=== PATIENT | male | born 1935 | race Caucasian/White ===

== ENCOUNTER 2019-06-17 12:26 | Inpatient (IN) | payer MEDICARE, OTHER ==
[~2019-06-17 12:26] MED LIST: ISOVUE-370 76%-LOCM 1 ML ONE
--- NOTE | 2019-06-17 12:38 | CT ---
Exam: Head CT without contrast HISTORY: Last seen normal at 12:05 PM. Left-sided weakness. Left-sided facial droop. COMPARISON: none FINDINGS: Hemorrhage: No intraparenchymal hemorrhage or extra-axial hematoma. Brain parenchyma: Cortical fonseca-white matter differentiation is preserved. No mass effect or midline shift. Basilar cisterns are patent. Ventricular system: Ventricles and sulci are patent and symmetric. Calvarium: Intact. Sinuses and mastoid air cells: Adequate aeration. IMPRESSION: No acute intracranial process. Results study discussed with Dr. Garcia 06/17/2019 at 12:35 PM Code CR
[2019-06-17 12:47] LABS: #Eosinphils 0.4 thou/uL (0.0-0.7); #Lymphocytes 1.9 thou/uL (1.20-3.40); #Monocytes 0.6 thou/uL (0.11-0.59); #Neutrophils 4.6 thou/uL (1.40-6.50); %Basophils 0.4 % (0.0-1.0); %Eosinophils 4.8 % (0.0-10.0); %Lymphocytes 25.7 % (21.0-51.0); %Monocytes 8.5 % (0.0-10.0); %Neutrophils 60.7 % (42.0-75.0); Mean Corpuscular HGB CONC 33.6 g/dL (32.0-36.0); Mean Corpuscular Hemoglobin 32.2 pg (27.0-31.0); Mean Corpuscular Volume 95.6 fL (78.0-98.0); Mean Platelet Volume 7.4 fL (7.4-10.4); Platelet Count 231 thou/uL (130-400); RBC Distribution Width 12.7 % (11.5-14.5); Red Blood Cell (RBC) Count 4.36 mill/uL (4.70-6.10); White Blood Cell (WBC) Count 7.6 thou/uL (4.8-10.8)
[2019-06-17 12:55] LABS: PTT 27.3 SEC (22.9-36.1); Prothrombin Time 12.9 SEC (12.0-14.7)
--- NOTE | 2019-06-17 13:03 | CT ---
CT ANGIOGRAM OF THE HEAD CT ANGIOGRAM OF THE NECK: HISTORY: Level 1 stroke. Acute onset left sided weakness and left facial droop. COMPARISON: None. TECHNIQUE: CT angiogram of the head and neck are performed in the axial plane. Three-dimensional reformatted mary ges are submitted for interpretation . FINDINGS: POSTCONTRAST HEAD CT: Cortical fonseca-white matter differentiation is preserved. POSTCONTRAST SOFT TISSUE NECK CT: Bilateral ocular lenses are appropriately located. Both globes are intact. Retrobulbar fat is preserv ed. Symmetric attenuation of the optic nerves and ocular rectus muscles. Aerodigestive tract: No mucosal abnormality. Limited evaluation the oral cavity due to dental amalgam artifact. Midline fatty raphae of the tongue preserved. Epiglottis has a normal caliber. Preepiglottic fat is preserved. Symmetric attenuation of the paraspinal muscles. Symmetric attenuation of sternocleidomastoid muscles . Symmetric attenuation of the salivary glands. Thyroid gland appears to be atrophic and hypodense. No evidence of lymphadenopathy by size criteria. Cervical spine vertebral body height is maintained. No fracture. Straightening of normal cervical bryan dosis may be due to cervical fusion from C4 through C5. Upper mediastinum is unremarkable. Presumed chronic changes in the visualized lung parenchyma. CT ANGIOGRAM: The visualized central pulmonary arteries are unremarkable. Visualized aortic arch demonstrates atherosclerosis. Right carotid: The right carotid artery origin, innominate artery, common carotid artery have appropr iate enhancement and luminal diameter. There is calcified plaque in the right carotid bifurcation and proximal internal carotid artery. There is high-grade stenosis in the proximal right internal car otid artery with a string sign involving the proximal to mid right internal carotid artery. The distal internal carotid artery does not demonstrate a enhancement suggesting occlusion/thrombosis. Left carotid: The left carotid artery origin has appropriate enhancement and luminal diameter. There is calcified plaque in a stent in the left carotid bifurcation and proximal left internal card artery. There appears to be patency through the stent. The mid to distal left internal carotid artery is patent. Visualized subclavian arteries are unremarkable. Bilateral cervical vertebral arteries are patent thr oughout their course in the neck. The right vertebral artery is dominant. CT ANGIOGRAM OF THE HEAD: Absence of enhancement in the distal cervical and intracranial right internal carotid artery. There i s appropriate enhancement and luminal diameter involving the intracranial left internal carotid artery. Anterior circulation: There is enhancement of the right A1 and right M1 segments, via collateral supp ly. The A1 segments and A2 segments are essentially symmetric. There is moderate short segment narrowing of the proximal right M1 segment. The mid and distal right M1 segments have appropriate enh ancement and luminal diameter. Proximal MCA branches appear to be symmetric. No evidence of significant vascular occlusion or stenosis. Posterior circulation: There is atherosclerosis involving both intracranial vertebral arteries. The b asilar artery appears to be solely supplied right vertebral artery. Basilar artery has appropriate enhancement and luminal diameter. Bilateral P1 segments have appropriate enhancement and luminal diam eter. The left vertebral artery appears to terminate in what is likely a PICA distribution. IMPRESSION: 1. High-grade stenosis with a string sign and occlusion of the right internal carotid artery. The int racranial right internal carotid artery does have enhancement due to collateral flow. 2. Stent in the left carotid bifurcation and proximal left internal carotid artery. There is atherosc lerotic disease. Stent appears to be patent. 3. Short segment moderate narrowing of the right M1 segment. 4. Basilar artery supplied solely by the right vertebral artery. No significant stenosis of either P1 segments. Results of study discussed with Dr. Garcia 06/17/2019 at 12:58 PM. Code CR Transcribed Date/Time: 06/17/2019 1:26 PM
[2019-06-17 13:08] LABS: ALT (SGPT) 17 U/L (8-55); AST (SGOT) 19 U/L (5-34); Albumin 3.9 g/dL (3.4-4.8); Alkaline Phosphatase 59 U/L (40-110); Anion Gap 16 mmol/L (10-20); BUN (Urea Nitrogen) 22 mg/dL (8.4-25.7); Bilirubin, Total 0.4 mg/dL (0.2-1.2); Calc. Creatinine Clearance 0 mL/min (70-130); Calcium 9.3 mg/dL (7.8-10.44); Carbon Dioxide 20 mmol/L (23-31); Chloride 105 mmol/L (98-107); Estimated GFR-MDRD 54; Globulin 2.7 g/dL (2.4-3.5); Glucose 199 mg/dL (83-110); Potassium 4.1 mmol/L (3.5-5.1); Protein, Total 6.6 g/dL (5.8-8.1); Sodium 137 mmol/L (136-145)
[2019-06-17 13:20] LABS: Troponin I 0.025 ng/mL (< 0.028)
[2019-06-17] MEDS ORDERED: Aspirin Chewable 81 MG TAB ONE (14:02)
[2019-06-17] MEDS ORDERED: Senokot S 8.6-50 MG TAB PO PRN (15:24)
[2019-06-17] MEDS ORDERED: Bisacodyl 10 MG SUPP PR PRN (15:24)
[2019-06-17] MEDS ORDERED: Guaifenesin DM 100-10/5 ML UDCUP PO PRN (15:24)
[2019-06-17] MEDS ORDERED: Dextrose 5% in Water 1,000 ML IV PRN (15:24)
[2019-06-17] MEDS ORDERED: Dextrose 50% Abboject 50 ML SYRINGE SLOW IVP PRN (15:24)
[2019-06-17] MEDS ORDERED: Acetaminophen 325 MG TAB PO PRN (15:24)
--- NOTE | 2019-06-17 16:19 | HP ---
REASON FOR ADMISSION: Acute CVA with left hemiparesis. HISTORY OF PRESENTING ILLNESS: The patient gives history of attending [facility] here. He is originally from [facility]. He was walking out in the sun for sometime as well post this ceremony. He got too weak and in fact slumped over to the left side. They took him to the first aid tent at the ceremony area. He was found drooling and had left-sided weakness. EMS was summoned. This happened around 12:00 p.m. The patient was brought to emergency room here by 12:20 p.m. His initial NIH was 9. This was rapidly improving and then come down to 6. The family declined tPA. Currently, he is oriented and communicating well. He appears to be a little dry. No complaints of chest pain or palpitation. He is able to move all 4 extremities. He is a right-handed person. He has some weakness on the left upper and lower extremity at present. No complaints of cough or expectoration. No complaints of fever. No prior history of stroke, although he has had carotid stenosis with complete occlusion on the right with collaterals and has stent placed in the left carotid system by his homeworker, Dr. Jose Pike in [place]. He has had a stress test done in January of 2019 which showed EF of 53% with wall motion abnormalities, but the patient eventually declined catheterization. PAST MEDICAL AND SURGICAL HISTORY: History of right carotid occlusion with good collaterals, history of left carotid territory stent done by Dr. Jose Pike, homeworker in [place] 3 years back. Last stress test was 3 months back which showed wall motion abnormalities but ejection fraction of 53% with the patient declining cath. He has chronic left bundle branch block. I have confirmed this by talking to Dr. Jose Pike's office at [place]. The number to reach their office is [phone]. History of prior ID with angioplasties done and no stenting done at the age of 49 years, diabetes mellitus type 2 which is uncontrolled, hypertension, cholecystectomy, hernia repair, hypothyroidism, and dementia. CURRENT MEDICATIONS: The patient is on; 1. Aspirin 81 mg p.o. daily. 2. Synthroid 137 mcg p.o. daily. 3. Hydrochlorothiazide 25 mg p.o. daily. 4. Imdur 15 mg p.o. daily. 5. Tresiba 12 units daily. 6. NovoLog sliding scale. 7. Lovastatin 20 mg daily. 8. Ramipril 10 mg daily. 9. Metformin extended release 1000 mg twice daily. 10. Ferrous sulfate one tab daily. 11. Centrum Silver 1 tablet daily. 12. Vitamin D3 daily. 13. Donepezil 10 mg daily. ALLERGIES: NO KNOWN DRUG ALLERGIES. PERSONAL HISTORY: Does not abuse alcohol or drugs. Lives with his . They have been for nearly 61 years now. FAMILY HISTORY: Mother in her 40s from lung cancer. She was a smoker. Father at the age of 82 from natural causes. CODE STATUS: Full. Power of deputy prosecuting attorney is his . REVIEW OF SYSTEMS: CONSTITUTIONAL: Negative for weight loss or gain, ability to conduct usual activities. SKIN: Negative for rash, itching. EYES: Negative for double vision, pain. ENT/MOUTH: Negative for nose bleeding, neck stiffness, pain, tenderness. CARDIOVASCULAR: Negative for palpitations, dyspnea on exertion, orthopnea. RESPIRATORY: Negative for shortness of breath, wheezing, cough, hemoptysis, fever or night sweats. GASTROINTESTINAL: Negative for poor appetite, abdominal pain, heartburn, nausea , vomiting, constipation, or diarrhea. GENITOURINARY: Negative for urgency, frequency, dysuria, nocturia. MUSCULOSKELETAL: Negative for pain, swelling. NEUROLOGIC/PSYCHIATRIC: Negative for anxiety, depression. ALLERGY/IMMUNOLOGIC: Negative for skin rash, bleeding tendency. PHYSICAL EXAMINATION: GENERAL: The patient is an 83-year-old male, who is currently not in any acute distress. VITAL SIGNS: Blood pressure 132/74, pulse 64 per minute, respiratory rate 18 per minute, saturating 95% on room air, temperature is 97.6 degrees Fahrenheit. NECK: Supple. No elevated JVD. HEENT: Eyes; extraocular muscles intact. Pupils reacting to light. Oral cavity, mucous membranes are dry. No exudates or congestion. CARDIOVASCULAR: S1 and S2 heard, regular rhythm. RESPIRATORY: Air entry 1+ bilateral. No rales or rhonchi. ABDOMEN: Soft. Bowel sounds heard. No tenderness, rigidity, or guarding. EXTREMITIES: No peripheral edema or calf tenderness. VASCULAR SYSTEM: Peripheral pulses 1+ bilateral. No ischemic ulcerations or gangrene. CENTRAL NERVOUS SYSTEM: Cranial nerves, the patient has mild facial droop on the left side. All other cranial nerves are grossly intact. Strength is 4/5 in left upper and lower extremity. Tone is normal. Reflexes are 2+ bilateral. Babinski is downgoing on the right, upgoing on the left. PSYCHIATRIC SYSTEM: The patient's mood is euthymic. No hallucinations or delusions. LABORATORY DATA: CT brain without contrast shows no acute intracranial process. CT angio of head and neck done showed high-grade stenosis with a string sign and occlusion of the right internal carotid artery. There is intracranial right internal carotid artery enhancement due to collateral flow. There is a stent in the left carotid bifurcation and proximal left internal carotid artery. The stent appears to be patent, short segment narrowing, moderate narrowing of the right M1 segment. There is basilar artery supplied solely by the right vertebral artery. No significant stenosis of either P1 segments. EKG done shows normal sinus rhythm at 63 beats per minute. There is chronic LBBB seen. This was confirmed with his homeworker's office. QRS duration is 152 milliseconds, corrected QT 489 milliseconds. Serum bicarb 20, BUN 22, creatinine 1.2, serum glucose 199. Liver enzymes within normal limits. Troponin I 0.02. Albumin 3.9. PT, INR, and PTT within normal limits. Electrolytes stable. White count of 7, H and H 14 and 41 , platelet count is 231, MCV is 95 with 60% neutrophils. CLINICAL IMPRESSION AND PLAN: The patient will be admitted to stroke unit for acute cerebrovascular accident with left hemiparesis. The patient has known history of carotid disease and has chronic occlusion of the right carotid and has a stent placed to the left carotid bifurcation as well. He was on aspirin and was on Plavix initially for the stent, but has discontinued it after a year of taking it. A stent for carotids was placed 3 years ago, is currently patent on the CT angio. Clinically, the patient has left hemiparesis. We will obtain a complete stroke workup. Echo with 2D Doppler. MRI brain without contrast will be obtained. We will obtain Neurology consultation with Dr. Vu who is certified low vision therapist. We will continue his home dose of Synthroid, Imdur extended release, ramipril as before. He will be on Lantus 10 units subcu twice daily as our pharmacy does not carry his Tresiba. We will also place him on Lipitor 40 mg at bedtime in view of significant atherosclerotic disease. PT, OT, and Speech evaluations will be requested per stroke protocol. I have given complete updates to the patient's and son including the patient at bedside. Job ID: [id number] MTDD
[2019-06-17 17:46] VITALS: BMI 23.8
[2019-06-17] MEDS: Sodium Chloride 0.9% 1,000 ML IV SCH ×2 (18:38→21:02)
[2019-06-17] MEDS: HumaLOG 300 UNITS/3 ML VIAL SC PRN (19:24)
[2019-06-17] MEDS ORDERED: Famotidine 20 MG TAB PO SCH (21:00)
[2019-06-17] MEDS: Donepezil HCl 10 MG TAB PO SCH (21:03)
[2019-06-17] MEDS: Atorvastatin Calcium 40 MG TAB PO SCH (21:03)
[2019-06-17] MEDS: Insulin Glargine 10 UNITS in Pre-Filled Syringe 1 EACH SC SCH (21:03)
[2019-06-18 04:18] LABS: #Eosinphils 0.3 thou/uL (0.0-0.7); #Lymphocytes 2.5 thou/uL (1.20-3.40); #Monocytes 0.9 thou/uL (0.11-0.59); #Neutrophils 5.5 thou/uL (1.40-6.50); %Basophils 0.1 % (0.0-1.0); %Eosinophils 3.1 % (0.0-10.0); %Lymphocytes 27.2 % (21.0-51.0); %Monocytes 9.9 % (0.0-10.0); %Neutrophils 59.7 % (42.0-75.0); Hemoglobin 13.4 g/dL (14.0-18.0); Mean Corpuscular HGB CONC 33.6 g/dL (32.0-36.0); Mean Corpuscular Hemoglobin 31.3 pg (27.0-31.0); Mean Corpuscular Volume 93.1 fL (78.0-98.0); Mean Platelet Volume 7.3 fL (7.4-10.4); Platelet Count 216 thou/uL (130-400); RBC Distribution Width 12.7 % (11.5-14.5); White Blood Cell (WBC) Count 9.2 thou/uL (4.8-10.8)
[2019-06-18 05:03] LABS: Anion Gap 13 mmol/L (10-20); BUN (Urea Nitrogen) 24 mg/dL (8.4-25.7); Calc. Creatinine Clearance 49 mL/min (70-130); Carbon Dioxide 23 mmol/L (23-31); Cardiac Risk 2.6 (Less than 4.5); Chloride 105 mmol/L (98-107); Cholesterol 125 mg/dl (< 200 Desired); Estimated GFR-MDRD 66; Glucose 126 mg/dL (83-110); HDL Cholesterol 48 mg/dL (>60 Neg Risk); LDL Cholesterol, Calculated 54 mg/dL; Potassium 3.5 mmol/L (3.5-5.1); Sodium 137 mmol/L (136-145); Triglycerides 115 mg/dL (Less than 150)
[2019-06-18] MEDS: Sodium Chloride 0.9% 1,000 ML IV SCH ×2 (05:57→12:16)
[2019-06-18] MEDS: Levothyroxine Sodium 25 MCG TAB PO SCH (05:58)
[2019-06-18] MEDS: Levothyroxine Sodium 112 MCG TAB PO SCH (05:58)
[2019-06-18] MEDS ORDERED: Levothyroxine Sodium 125 MCG TAB PO SCH (06:00)
[2019-06-18] MEDS ORDERED: Isosorbide Mononitrate (ER) 30 MG TAB PO SCH (09:00)
[2019-06-18] MEDS: Isosorbide Mononitrate (ER) 30 MG TAB PO SCH (10:41)
[2019-06-18] MEDS: Aspirin 81 mg Enteric Coated Tablet PO SCH (10:41)
[2019-06-18] MEDS: Ramipril 5 MG CAP PO SCH (10:41)
[2019-06-18] MEDS: Clopidogrel Bisulfate 75 MG TAB PO SCH (10:42)
[2019-06-18] MEDS: Enoxaparin Sodium 40 MG/0.4 ML SYRINGE SC SCH (10:42)
[2019-06-18] MEDS: Famotidine 20 MG TAB PO SCH (10:42)
[2019-06-18] MEDS: Insulin Glargine 10 UNITS in Pre-Filled Syringe 1 EACH SC SCH ×2 (10:43→21:31)
[2019-06-18] MEDS: HumaLOG 300 UNITS/3 ML VIAL SC PRN (12:44)
--- NOTE | 2019-06-18 14:21 | PDOC.HOSPP ---
- Subjective Encounter Date: 06/18/19 Subjective: Pt seen c/o left sided weakness and unsteadiness - Objective Vital Signs & Weight: Vital Signs (12 hours) Temp Pulse Pulse Pulse Resp BP BP 06/18/19 12:00 97.1 F L 71 20 06/18/19 10:41 177/85 H 06/18/19 10:35 06/18/19 10:15 65 67 164/84 H 06/18/19 07:25 98 F 64 20 06/18/19 04:00 97.8 F 67 20 BP BP Pulse Ox 06/18/19 12:00 167/77 H 95 06/18/19 10:41 06/18/19 10:35 98 06/18/19 10:15 190/89 H 06/18/19 07:25 177/85 H 98 06/18/19 04:00 184/86 H 96 Weight Weight 147 lb 13.44 oz Result Diagrams: 06/18/19 04:02 06/18/19 04:02 Additional Labs: Accuchecks 06/18/19 06/18/19 06/18/19 12:37 10:42 06:02 POC Glucose 313 H 254 H 113 H 06/17/19 06/17/19 06/17/19 19:49 18:34 15:29 POC Glucose 218 H 181 H 108 06/17/19 14:39 POC Glucose 108 Hospitalist ROS - Review of Systems Constitutional: denies: fever Eyes: denies: pain ENT: denies: ear pain Respiratory: denies: cough Gastrointestinal: denies: nausea Musculoskeletal: denies: neck pain Neurological: reports: weakness - Medication Medications: Active Medications Generic Name Dose Route Start Last Admin Trade Name Freq PRN Reason Stop Dose Admin Aspirin 81 mg 06/18/19 09:00 06/18/19 10:41 Ecotrin PO 81 mg DAILY BREA Administration Atorvastatin Calcium 40 mg 06/17/19 21:00 06/17/19 21:03 Lipitor PO 40 mg HS BREA Administration Clopidogrel Bisulfate 75 mg 06/18/19 09:00 06/18/19 10:42 Plavix PO 75 mg DAILY BREA Administration Donepezil HCl 10 mg 06/17/19 21:00 06/17/19 21:03 Aricept PO 10 mg HS BREA Administration Enoxaparin Sodium 40 mg 06/18/19 09:00 06/18/19 10:42 Lovenox SC 40 mg 09 BREA Administration Famotidine 20 mg 06/18/19 09:00 06/18/19 10:42 Pepcid PO 20 mg DAILY BREA Administration Insulin Glargine 10 units/ 0.1 mls @ 0 mls/hr 06/17/19 21:00 06/18/19 10:43 Miscellaneous Medication SC 0.1 mls BID BREA Administration Sodium Chloride 1,000 mls @ 70 mls/hr 06/17/19 15:24 06/18/19 12:16 Normal Saline 0.9% IV 06/18/19 19:58 1,000 mls .[id number] BREA Administration Insulin Human Lispro 0 units 06/17/19 15:24 06/18/19 12:44 Humalog SC 8 units .MODERATE SLIDING SC PRN Administration Moderate Correctional Scale Isosorbide Mononitrate 15 mg 06/18/19 09:00 06/18/19 10:41 Imdur Er PO 15 mg DAILY BREA Administration Levothyroxine Sodium 112 mcg 06/18/19 06:00 06/18/19 05:58 Synthroid PO 112 mcg 0600 BREA Administration Levothyroxine Sodium 25 mcg 06/18/19 06:00 06/18/19 05:58 Synthroid PO 25 mcg 0600 BREA Administration Ramipril 10 mg 06/18/19 09:00 06/18/19 10:41 Altace PO 10 mg DAILY BREA Administration Sodium Chloride 10 ml 06/17/19 15:24 06/17/19 21:02 Flush - Normal Saline IVF 10 ml PRN PRN Administration Saline Flush - Exam Eye: PERRL ENT: normocephalic atraumatic, dry oral mucosa Neck: supple Respiratory: CTAB Gastrointestinal: soft Extremities: no cyanosis Neurological: facial droop Neurological - other findings: left sided 4/5 power Musculoskeletal: normal tone Psychiatric: normal affect Hosp A/P - Plan Possible Acute CVA with left hemiparesis CT brain neg Pending MRI brain , echo , continue plavix, statin , neuro checks , neurology evaluation appreciated , f/ u PT/OT/ST HTN Continue monitoring BP Hypothyroid Continue synthroid DM continue monitoring blood sugar h/o Carotid artery stenosis s/p Left carotid stenting , CTA positive for right ICA narrowing and patent left ICA stent DVT/GI Prophylaxis
--- NOTE | 2019-06-18 15:42 | MRI ---
MRI Brain WO Con: 06/18/2019 3:24 PM CLINICAL HISTORY: Stroke. TECHNIQUE: Multiplanar, multisequence images were obtained of the brain. COMPARISON: CT brain dated June 17, 2019 FINDINGS: Motion artifact slightly limits image detail. Extra axial spaces: Normal in size and morphology for the patient's age. Hemorrhage: None. Ventricular system: Normal in size and morphology for the patient's age. Basal cisterns: Normal. Cerebral parenchyma: There is a mild chronic small vessel white matter ischemic change. There is mild generalized cerebral and cerebellar atrophy. There are punctate regions of restricted diffusion with associated T2 hyperintensity involving the right subinsular cortex and punctate regions of the a nterolateral right frontal cortex.. Midline shift: None. Cerebellum: Normal. Brainstem: Normal. OTHER: Calvarium: Normal. Vascular system: Normal. Visualized Paranasal sinuses: Clear. Visualized Orbits: Normal. Visualized upper cervical spine: Normal. Sella and skull base: Normal. IMPRESSION: Acute, likely embolic, lacunar infarcts involving the right subinsular cortex as well as the cortex a nd subcortical white matter of the anterolateral right frontal lobe. Mild chronic small vessel white matter ischemic change with mild generalized cerebral and cerebellar atrophy.
--- NOTE | 2019-06-18 16:37 | CON ---
DATE OF CONSULTATION: 06/18/2019 This was a Telemedicine consult with RN, Caleb Harrison. CHIEF COMPLAINT: Acute stroke. HISTORY OF PRESENT ILLNESS: The patient's and the patient gave medical history. The patient was at a ring ceremony, when he collapsed to the ground, it was hot. They had to walk up several blocks to get there. He suddenly felt that his left side became weak and his face started drooping. His niece rushed him to the hospital. He felt dizzy at that time. No history of headache. No numbness or tingling or vision problems. He has poorly controlled diabetes, but his blood pressure is normally under control. He never had a stroke. PAST SURGICAL HISTORY: He has history of left carotid angioplasty, gallbladder surgery, and hernia repair. FAMILY HISTORY: Father at 82 due to aging. Mother at 47. She had lung cancer. The patient is an only child. He has 3 kids, who are healthy. SOCIAL HISTORY: He is nonsmoker. He is tired. Lives with his . No alcohol. REVIEW OF SYSTEMS: PULMONARY: Negative for cough or shortness of breath. GASTROINTESTINAL: Negative for any nausea, vomiting, or diarrhea. OPHTHALMOLOGIC: Negative for any vision changes. NEUROLOGIC: Positive for left-sided weakness and dizziness. DERMATOLOGIC: Negative for any skin rash. GENITOURINARY: Negative for any bladder dysfunction. PHYSICAL EXAMINATION: VITAL SIGNS: Blood pressure is 177/85, pulse is 71, temperature 97.1, and O2 saturations 98%. GENERAL APPEARANCE: Well-built, well-nourished man, who seems comfortable. CHEST: Clear vesicular breathing. CARDIOVASCULAR: Normal. ABDOMEN: Soft and nontender. No organomegaly noted. NEUROLOGIC: Higher intellectual functions. Normal orientation to time, place, and person. Appropriate conversation. Cranial nerves; normal extraocular movements. Pupils are 2 mm, reactive bilaterally and he had facial asymmetry with facial droop on the left side. Tongue midline. No atrophy noted. Normal elevation of palate. Motor; bulk normal. Tone normal. Strength 5/5 throughout in iliopsoas, hamstrings, quadriceps, ankle dorsiflexion, plantar flexion, deltoid, biceps, triceps, wrist extension and flexion, and on the right side is 5/5. On the left side, he had weakness in the left upper extremity at 4/5 and left lower extremity 3/5 in the flexors and 4/5 in the extensors. Gait not testable. Cerebellar; normal [id number], [id number]. Sensory normal bilaterally in upper and lower extremities. Deep tendon reflexes absent throughout. LABORATORY WORKUP: White count 9.2, hemoglobin 13.4, hematocrit 40, and platelet count 216. Coags normal. Chemistry; sodium 137, potassium 3.5, chloride 105, bicarb 23, BUN 24, creatinine 1.07, and glucose 126. Lipid profile within normal limits and his CT angiogram was reported and it showed high-grade stenosis with a string sign and occlusion of the right ICA. Intracranial right ICA does have an enhancement due to collateral flow. Stent in the left carotid bifurcation and proximal ICA is atherosclerotic disease. Stent is patent. Short segment moderate narrowing of the right M1 segment basilar artery supplied solely by the right vertebral artery. His brain MRI was completed by the time of this dictation and his brain MRI shows acute likely embolic lacunar infarct in the right subinsular cortex as well as cortex and subcortical white matter of anterolateral right frontal lobe. Moderate chronic small vessel disease with mild generalized cerebral and cerebellar atrophy. Echocardiogram is pending. IMPRESSION: The patient is an 83-year-old man with diabetes, which is not well controlled. He has been having problems with his left side since yesterday and currently has right-sided infarct, both in cortical and subcortical area. He does have right internal carotid artery stenosis. This could obtain embolic from the carotid rather than cardioembolic event, but we are currently pending echocardiogram. TREATMENT RECOMMENDATIONS: Please keep the patient on high-dose aspirin 325 mg along with statin. Please consult Vascular Surgery for opinion about the right carotid artery. He will probably need both aspirin and Plavix for stroke prophylaxis from now on. I will see the patient again tomorrow. Job ID: [id number]
[2019-06-18] MEDS: Atorvastatin Calcium 40 MG TAB PO SCH (21:27)
[2019-06-18] MEDS: Donepezil HCl 10 MG TAB PO SCH (21:27)
[2019-06-19] MEDS ORDERED: hydrALAZINE 20 MG/ML VIAL SLOW IVP SCH (04:30)
[2019-06-19] MEDS: Levothyroxine Sodium 112 MCG TAB PO SCH (05:26)
[2019-06-19] MEDS: Levothyroxine Sodium 25 MCG TAB PO SCH (05:26)
[2019-06-19] MEDS: Famotidine 20 MG TAB PO SCH (08:51)
[2019-06-19] MEDS: Isosorbide Mononitrate (ER) 30 MG TAB PO SCH (08:51)
[2019-06-19] MEDS: Ramipril 5 MG CAP PO SCH (08:51)
[2019-06-19] MEDS: Aspirin 81 mg Enteric Coated Tablet PO SCH (08:51)
[2019-06-19] MEDS: Enoxaparin Sodium 40 MG/0.4 ML SYRINGE SC SCH (08:51)
[2019-06-19] MEDS: Clopidogrel Bisulfate 75 MG TAB PO SCH (08:52)
[2019-06-19] MEDS: Insulin Glargine 10 UNITS in Pre-Filled Syringe 1 EACH SC SCH ×2 (08:52→21:07)
--- NOTE | 2019-06-19 10:34 | CON ---
DATE OF CONSULTATION: HISTORY OF PRESENT ILLNESS: Mr. Allen is an 83-year-old, who is from [place]. He has a history of left carotid stent placement a couple of years ago. He is followed in [place] and was seen 6 months ago with carotid ultrasound. According to his , they were told that the carotid stent was okay. His right carotid had not progressed enough to need any therapy at that time. He presented through the emergency department with stroke symptoms. He was here in town, visiting his grandson. He had left-sided weakness and was found to be drooling and very weak. He was not given tPA at presentation. Since that time, he has recovered some of the strength in his leg and has actually been walking with assistance. His left arm and hand remain weak. He apparently has been eating without difficulty, but on my arrival was eating grits and coughing. He also had couple of sips of coffee that caused him to cough. We decided to not allow him to eat until he had further swallowing evaluation. He has had a CT angio of his neck performed, which shows an occluded right carotid system. He has a left carotid stent that is patent with some pre-stent restenoses. PAST MEDICAL HISTORY: 1. Carotid disease. 2. Diabetes mellitus. 3. Hypertension. 4. Hypothyroidism. PAST SURGICAL HISTORY: 1. Cholecystectomy. 2. Hernia repair. 3. Left carotid stenting. CURRENT MEDICATIONS: 1. Aspirin 81 mg daily - the patient had previously been on Plavix, but stopped it about a year ago. 2. Synthroid 137 mcg daily. 3. Hydrochlorothiazide 25 mg daily. 4. Imdur 15 mg daily. 5. Tresiba 12 units daily. 6. NovoLog sliding scale. 7. Lovastatin 20 mg daily. 8. Ramipril 10 mg daily. 9. Metformin ER 1000 mg b.i.d. 10. Donepezil 10 mg daily. ALLERGIES: NONE. SOCIAL HISTORY: He lives with his in [place]. REVIEW OF SYSTEMS: Not performed due to the patient's current status. PHYSICAL EXAMINATION: GENERAL: This is an 83-year-old gentleman, who is able to converse, but is very weak. VITAL SIGNS: Height is 5 feet and 6 inches. Weight is 147 pounds. BSA is 1.77. Temperature is 97.3, pulse is 69 and regular, and blood pressure is 180/90. HEENT: Sclerae are nonicteric. Pupils are equal and round bilaterally. NECK: Supple without carotid bruit on the right. I can auscultate a very soft bruit on the left. CHEST: Clear with some rhonchi. HEART: Rhythm is regular. NEUROLOGIC: He has good function of his left lower extremity. His left upper extremity, he can raise it off the bed. He can squeeze his hand into a fist, but cannot open. He can weakly raise his thumb. His forearm musculature is also very weak. RADIOLOGY DATA: MRI shows multifocal right cerebral infarcts. CT angiogram of the neck shows an occluded right internal carotid artery with patent carotid stent on the left. ASSESSMENT AND PLAN: Status post right hemispheric cerebrovascular accident with residual deficits. He needs a swallowing evaluation again to ensure that he is not aspirating. There is no current therapy for an occluded internal carotid artery. I have recommended aspirin, Plavix, and poststroke rehab. Job ID: [id number]
--- NOTE | 2019-06-19 12:46 | CT ---
CT Brain WO Con: 06/19/2019 11:59 AM CLINICAL HISTORY: History of CVA with increased lethargy. IMAGING TECHNIQUE: Multiple CT images were obtained of the brain without IV contrast. COMPARISON: MR the brain dated June 10, [address] the brain dated June 17, 2019 FINDINGS: Brain: There are evolutionary changes involving the cortical and subcortical white matter infarcts i nvolving the right frontal lobe and right subinsular region. Chronic small vessel white matter ischemic changes similar appearing. Generalized cerebral atrophy is similar appearing. Ventricles: Normal. No hydrocephalus.. Skull: Intact.. Visualized Paranasal sinuses: Clear.. Mastoid air cells:Clear. Extracranial soft tissues:Normal. IMPRESSION: Evolutionary changes of the known anterolateral right frontal lobe cortical infarct and lacunar infar ct in the right subinsular region.
--- NOTE | 2019-06-19 14:04 | PDOC.HOSPP ---
- Subjective Encounter Date: 06/19/19 Subjective: Pt seen awake follows command as per symptoms are more worse than yesterday , , Pt not in distress awake follows command - Objective Vital Signs & Weight: Vital Signs (12 hours) Temp Pulse Pulse Pulse Resp BP BP 06/19/19 11:58 97.8 F 95 16 06/19/19 10:00 87 86 133/76 06/19/19 08:51 180/90 H 06/19/19 07:56 97.3 F L 69 20 06/19/19 05:27 66 06/19/19 04:34 72 180/90 H 06/19/19 04:21 72 06/19/19 04:00 97.7 F 72 16 06/19/19 03:22 BP BP BP Pulse Ox 06/19/19 11:58 163/77 H 93 L 06/19/19 10:00 141/70 H 06/19/19 08:51 06/19/19 07:56 132/63 96 06/19/19 05:27 162/75 H 06/19/19 04:34 06/19/19 04:21 180/90 H 06/19/19 04:00 184/84 H 96 06/19/19 03:22 96 Weight Weight 147 lb 13.44 oz Result Diagrams: 06/18/19 04:02 06/18/19 04:02 Additional Labs: Accuchecks 06/19/19 06/19/19 06/19/19 10:56 06:23 01:50 POC Glucose 187 H 133 H 96 06/18/19 06/18/19 20:24 16:56 POC Glucose 203 H 154 H Hospitalist ROS - Review of Systems Constitutional: denies: fever Eyes: denies: pain ENT: denies: ear pain Respiratory: denies: cough Cardiovascular: denies: chest pain Gastrointestinal: denies: nausea Musculoskeletal: denies: neck pain Skin: denies: rash Neurological: reports: weakness Other: power left side 4/5 with left facial droop - Medication Medications: Active Medications Generic Name Dose Route Start Last Admin Trade Name Freq PRN Reason Stop Dose Admin Aspirin 81 mg 06/18/19 09:00 06/19/19 08:51 Ecotrin PO 81 mg DAILY BREA Administration Atorvastatin Calcium 40 mg 06/17/19 21:00 06/18/19 21:27 Lipitor PO 40 mg HS BREA Administration Clopidogrel Bisulfate 75 mg 06/18/19 09:00 06/19/19 08:52 Plavix PO 75 mg DAILY BREA Administration Donepezil HCl 10 mg 06/17/19 21:00 06/18/19 21:27 Aricept PO 10 mg HS BREA Administration Enoxaparin Sodium 40 mg 06/18/19 09:00 06/19/19 08:51 Lovenox SC 40 mg 0900 BREA Administration Famotidine 20 mg 06/18/19 09:00 06/19/19 08:51 Pepcid PO 20 mg DAILY BREA Administration Insulin Glargine 10 units/ 0.1 mls @ 0 mls/hr 06/17/19 21:00 06/19/19 08:52 Miscellaneous Medication SC 0.1 mls BID BREA Administration Insulin Human Lispro 0 units 06/17/19 15:24 06/18/19 12:44 Humalog SC 8 units .MODERATE SLIDING SC PRN Administration Moderate Correctional Scale Isosorbide Mononitrate 15 mg 06/18/19 09:00 06/19/19 08:51 Imdur Er PO 15 mg DAILY BREA Administration Levothyroxine Sodium 112 mcg 06/18/19 06:00 06/19/19 05:26 Synthroid PO 112 mcg 0600 BREA Administration Levothyroxine Sodium 25 mcg 06/18/19 06:00 06/19/19 05:26 Synthroid PO 25 mcg 0600 BREA Administration Ramipril 10 mg 06/18/19 09:00 06/19/19 08:51 Altace PO 10 mg DAILY BREA Administration Sodium Chloride 10 ml 06/17/19 15:24 06/17/19 21:02 Flush - Normal Saline IVF 10 ml PRN PRN Administration Saline Flush - Exam General - other findings: Awake but looks week and tired Eye: anicteric sclera ENT: normocephalic atraumatic Neck: supple Heart: no murmur Respiratory: CTAB Gastrointestinal: soft Extremities: no cyanosis Skin: normal turgor Neurological - other findings: left facial droop and left side power 4/5 Musculoskeletal: normal tone Hosp A/P - Plan Possible Acute CVA with left hemiparesis CT brain neg , MRI brain positive for right lacunar infarcsts right sub insular and sub cortical white matter anterolateral frontal lobe , echo with normal EF and calcified mass possible chorda tendinae calcification , Discussed with Dr Horace Tai will get cardiology evaluation if MINNA needed , continue aspirin plavix, statin , neuro checks , neurology evaluation appreciated , Continue PT/OT/ST , Pt has more worsening symptoms today most likely due to evolutionary changes , possible needs rehab placement HTN Continue monitoring BP , Continue home ramipril and added amlodipine will avoid aggressive drop in BP Hypothyroid Continue synthroid DM continue monitoring blood sugar h/o Carotid artery stenosis s/p Left carotid stenting , Right ICA stenosis Vascular surgery evaluation appreciated recomended no surgical intervention at present DVT/GI Prophylaxis Plan Discusssed with pt , son , and Dr Zaire Vu
--- NOTE | 2019-06-19 16:10 | PRG ---
DATE OF SERVICE: 06/19/2019 CHIEF COMPLAINT: Acute stroke. INTERVAL HISTORY: The patient's is very concerned, because the patient has progressed and the stroke is now more established. He has become more drowsy today and is much worse and at this time, he has already been seen by vascular surgeon as well. I requested a CT of the head after I visited with him this afternoon and CT shows evolutionary changes of the known anterolateral right frontal lobe cortical infarct and lacunar infarct in the right subinsular region and echocardiogram has been completed and reviewed already yesterday. Labs count, no new labs today, glucose is 187. PHYSICAL EXAMINATION: VITAL SIGNS: Temperature 97.3, blood pressure 180/90, pulse 69, respiratory rate 20, O2 saturations 96, and blood pressure 132/63. GENERAL APPEARANCE: The patient is asleep and not awake today. He is responsive and stimulated and fearful. NEUROLOGIC: Cranial nerves, pupils 2 mm bilaterally and he has more significant left facial droop. Motor examination, his strength on the right is normal, strength on the left is 4/5. IMPRESSION: The patient is an 83-year-old man with right internal carotid artery stenosis and he had an embolic event with 2 strokes, 1 in the right frontal and 1 subinsular lacunar infarct and seems to have more established infarct with expected evolution today clinically as well. At this time, the patient's is quite distressed with his change in neurological status. Son was also in the room. I advised the patient's and son that he has now established the stroke and there would be more changes as expected with the evolution of ischemic area and there is not much we can do other than wait for him to recover slowly. RECOMMENDATIONS: Please follow vascular surgery consult recommendations for adding Plavix to aspirin. The patient will need rehab or SNF based on his recovery. If there are any further questions, please call Dr. Franco from tomorrow. Job ID: [id number]
[2019-06-19] MEDS ORDERED: Prochlorperazine Maleate 5 MG TAB PO PRN (16:14)
[2019-06-19] MEDS: Atorvastatin Calcium 40 MG TAB PO SCH (21:07)
[2019-06-19] MEDS: Donepezil HCl 10 MG TAB PO SCH (21:07)
[2019-06-20] MEDS: Levothyroxine Sodium 112 MCG TAB PO SCH (05:01)
[2019-06-20] MEDS: Levothyroxine Sodium 25 MCG TAB PO SCH (05:01)
[2019-06-20 06:08] LABS: Anion Gap 13 mmol/L (10-20); BUN (Urea Nitrogen) 14 mg/dL (8.4-25.7); Calc. Creatinine Clearance 56 mL/min (70-130); Carbon Dioxide 22 mmol/L (23-31); Chloride 105 mmol/L (98-107); Estimated GFR-MDRD 77; Glucose 92 mg/dL (83-110); Potassium 3.5 mmol/L (3.5-5.1); Sodium 136 mmol/L (136-145)
[2019-06-20] MEDS: Enoxaparin Sodium 40 MG/0.4 ML SYRINGE SC SCH (08:42)
[2019-06-20] MEDS: Aspirin 81 mg Enteric Coated Tablet PO SCH (08:42)
[2019-06-20] MEDS: Ramipril 5 MG CAP PO SCH (08:42)
[2019-06-20] MEDS: Famotidine 20 MG TAB PO SCH (08:43)
[2019-06-20] MEDS: Clopidogrel Bisulfate 75 MG TAB PO SCH (08:43)
[2019-06-20] MEDS: Isosorbide Mononitrate (ER) 30 MG TAB PO SCH (08:43)
--- NOTE | 2019-06-20 10:35 | RAD ---
EXAM: XR Ba Swallow W/Speech Therap PROVIDED CLINICAL HISTORY: Dysphagia following cerebral infarction Feeding difficulties COMPARISON: None FINDINGS: Multiple consistencies of oral barium were administered by the speech therapist. There is evidence fo r penetration with multiple consistencies. Kaushik aspiration without cough reflex is demonstrated involving smoothie consistency. Please see speech therapy consultation for full details. IMPRESSION: As above.
[2019-06-20] MEDS: Insulin Glargine 10 UNITS in Pre-Filled Syringe 1 EACH SC SCH ×2 (11:18→21:10)
[2019-06-20] MEDS: D5 0.9% NS w/ 20 mEq KCl 1,000 ML IV SCH (14:53)
--- NOTE | 2019-06-20 19:03 | CON ---
DATE OF CONSULTATION: 06/20/2019 REQUESTING PHYSICIAN: Dr. Pino. REASON FOR CONSULTATION: PEG tube placement. HISTORY OF PRESENT ILLNESS: Emmanuel Allen is an 83-year-old man from the [facility], who has been in town for [employer] ceremony. Unfortunately, he was admitted to the hospital 3 days ago with acute stroke symptoms. He has been found to have 2 areas of infarction in the right frontal area and right lacunar infarct as well. He unfortunately has had waning level of consciousness, aphasia, and also oropharyngeal dysphagia. Modified barium swallow test today demonstrated daniel aspiration with smooth consistencies and penetration with all consistencies. His family has discussed it and desires to proceed with PEG tube placement. The patient has had a prior cholecystectomy and abdominal hernia repair, but no other abdominal surgeries. No significant prior gastrointestinal history. He is being treated with aspirin and Plavix. REVIEW OF SYSTEMS: Unable to obtain due to the patient's mental status. PAST MEDICAL HISTORY: History of right carotid occlusion, history of left carotid endarterectomy with stent, chronic left bundle branch block, prior myocardial infarction with angioplasty at age 49, diabetes type 2, hypertension, cholecystectomy, hernia repair, hypothyroidism, and dementia. MEDICATIONS: Outpatient medications: 1. Aspirin 81 mg daily. 2. Synthroid. 3. Hydrochlorothiazide. 4. Imdur. 5. Tresiba insulin sliding scale. 6. Lovastatin. 7. Ramipril. 8. Metformin. 9. Ferrous sulfate. 10. Multivitamin. 11. Vitamin D3. 12. Donepezil. Inpatient medications: 1. Plavix 75 mg daily. 2. Pepcid 20 mg p.o. daily. FAMILY HISTORY: Noncontributory. SOCIAL HISTORY: The patient is from the [facility]. No alcohol or drug abuse. He has been for nearly 61 years. FAMILY HISTORY: Mother in her 40s from lung cancer. She was a smoker. PHYSICAL EXAMINATION: VITAL SIGNS: Temperature 97.9, pulse 86, blood pressure 120/60, and 95% oxygen saturation on room air. GENERAL: An 83-year-old man, lying in bed, unresponsive, appears to be in no distress. SKIN: No jaundice. No rashes were palpable. EYES: No scleral icterus. ENT: Mucous membranes moist. LYMPH: No submandibular or supraclavicular lymphadenopathy. THYROID: Nontender to palpation. HEART: Regular rate and rhythm. LUNGS: Clear to auscultation bilaterally. ABDOMEN: Nondistended. Bowel sounds present. Soft, nontender to palpation. No surgical scars apparent to the left upper quadrant. He does have a midline scar from prior cholecystectomy. EXTREMITIES: No peripheral edema. VESSELS: Radial pulses 2+ bilaterally. NEUROLOGIC: The patient does not follow commands. LABORATORY STUDIES: WBC 9.2, hemoglobin 13.4, platelets 216. INR 1.0. Sodium 136, potassium 3.5, BUN 14, creatinine 0.93, glucose 121, and magnesium 1.8. ASSESSMENT AND PLAN: Oropharyngeal dysphagia following cerebrovascular accident. I had a long discussion with the patient's and daughter today. I do think the patient is a good candidate for percutaneous endoscopic gastrostomy tube placement for nutritional delivery. We discussed the potential risks and benefits of percutaneous endoscopic gastrostomy tube placement including bleeding, infection, failure of procedure, perforated viscus surgery as well as anesthesia risk. They desire for us to proceed. We will plan for PEG placement tomorrow. Hold Lovenox tomorrow in anticipation for procedure. Note, the patient is on aspirin and Plavix, but I would not hold these for PEG placement in this context. Thank you for the consultation. Please call anytime with questions or concerns. Job ID: [id number]
[2019-06-20] MEDS: Atorvastatin Calcium 40 MG TAB PO SCH (21:24)
[2019-06-20] MEDS: Donepezil HCl 10 MG TAB PO SCH (21:24)
--- NOTE | 2019-06-20 21:26 | PDOC.HOSPP ---
- Subjective Encounter Date: 06/20/19 Encounter Time: 11:30 Subjective: Patient seen and examined for Acute CVA. Somnolent. No new focal deficits. No overnight events - Objective Vital Signs & Weight: Vital Signs (12 hours) Temp Pulse Resp BP Pulse Ox 06/20/19 20:04 97.8 F 76 20 144/83 H 96 06/20/19 15:40 97.4 F L 84 18 132/65 94 L 06/20/19 11:58 97.9 F 86 18 120/60 95 Weight Weight 147 lb 13.44 oz I&O: 06/19/19 06/20/19 06/21/19 06:59 06:59 06:59 Intake Total 307 Balance 307 Result Diagrams: 06/18/19 04:02 06/20/19 05:31 Additional Labs: Accuchecks 06/20/19 06/20/19 06/20/19 16:52 11:19 05:51 POC Glucose 139 H 121 H 90 06/19/19 23:44 POC Glucose 144 H EKG Reviewed by me: Yes (Tele SR/Vta) Hospitalist ROS - Review of Systems ROS unobtainable: due to mental status - Medication Medications: Active Medications Generic Name Dose Route Start Last Admin Trade Name Freq PRN Reason Stop Dose Admin Aspirin 81 mg 06/18/19 09:00 06/20/19 08:42 Ecotrin PO 81 mg DAILY BREA Administration Atorvastatin Calcium 40 mg 06/17/19 21:00 06/19/19 21:07 Lipitor PO 40 mg HS BREA Administration Clopidogrel Bisulfate 75 mg 06/18/19 09:00 06/20/19 08:43 Plavix PO 75 mg DAILY BREA Administration Donepezil HCl 10 mg 06/17/19 21:00 06/19/19 21:07 Aricept PO 10 mg HS BREA Administration Enoxaparin Sodium 40 mg 06/18/19 09:00 06/20/19 08:42 Lovenox SC 40 mg 0900 BREA Administration Famotidine 20 mg 06/18/19 09:00 06/20/19 08:43 Pepcid PO 20 mg DAILY BREA Administration Insulin Glargine 10 units/ 0.1 mls @ 0 mls/hr 06/17/19 21:00 06/20/19 21:10 Miscellaneous Medication SC 0.1 mls BID BREA Administration Potassium Chloride/Dextrose/Sod Cl 1,000 mls @ 75 mls/hr 06/20/19 13:00 06/20 14:53 D5 0.9% Ns W/ 20 Meq Kcl IV 1,000 mls .[id number] BREA Administration Insulin Human Lispro 0 units 06/17/19 15:24 06/18/19 12:44 Humalog SC 8 units .MODERATE SLIDING SC PRN Administration Moderate Correctional Scale Isosorbide Mononitrate 15 mg 06/18/19 09:00 06/20/19 08:43 Imdur Er PO 15 mg DAILY BREA Administration Levothyroxine Sodium 112 mcg 06/18/19 06:00 06/20/19 05:01 Synthroid PO 112 mcg 0600 BREA Administration Levothyroxine Sodium 25 mcg 06/18/19 06:00 06/20/19 05:01 Synthroid PO 25 mcg 0600 BREA Administration Prochlorperazine Maleate 5 mg 06/19/19 16:14 06/19/19 21:07 Compazine PO 5 mg 12 PRN Administration Hiccups Ramipril 10 mg 06/18/19 09:00 06/20/19 08:42 Altace PO 10 mg DAILY BREA Administration Sodium Chloride 10 ml 06/17/19 15:24 06/17/19 21:02 Flush - Normal Saline IVF 10 ml PRN PRN Administration Saline Flush - Exam General Appearance: NAD Neck: supple, no JVD Heart: RRR, no gallops Respiratory: CTAB, no rales Gastrointestinal: soft, non-tender, normal bowel sounds Extremities: no edema Neurological: no new deficit Neurological - other findings: Exam limited due to AMS Psychiatric: somnolent Hosp A/P - Plan DVT proph w/lovenox Acute CVA Swallow dysfunction Rt ICA stenosis NSVT CAD HTN HLD DM2 Hypothyrodism PLAN: Cont ASA/Plavix Consult GI for PEG tube eval AM labs Await Cardio input
--- NOTE | 2019-06-20 22:27 | CON ---
DATE OF CONSULTATION: 06/20/2019 INDICATION FOR CONSULTATION: An 83-year-old gentleman who suffered an apparently large CVA, who was found to have some right carotid artery stenosis, which was subtotal apparently with a string sign. He has undergone angioplasty and stent placement to the left carotid artery in the past. He has had no significant CVAs in the past. He does have a history of coronary artery disease, suffered a myocardial infarction many years ago and had angioplasty, but no stent was placed. He has not had any bypass surgery. He usually is very active and walks a mile a day and stays active. He was at a ring ceremony for his grandson when he started having some left-sided drooling and felt bad. He then started having some problems with swallowing. He remained weak. His left side became very weak. He was unable to move his arm or his hand. Apparently, he was brought to the emergency room, was found to have suffered a CVA. He did have some slight improvement with any regress or digress again. He does have what appears to be significant lethargy at this time and very little movement on the left side. He was found to have the carotid artery stenosis. He also has a history of hypertension and diabetes. At this time, the echocardiogram did show some calcification and what appeared to be the chordae tendineae and this is of some concern. However, given his current present condition at this time, he is not a reasonable candidate to undergo a transesophageal echocardiogram as there will be no changes in the therapy on this patient at this time. He had no previous or no recent cardiac complaints. We are more than happy to continue to follow the patient with you. Should he have improvement, then we certainly can evaluate the calcification in the left ventricle, which appears to be due to the chordae and may be associated with a previous myocardial infarction, that is unclear. PAST MEDICAL HISTORY: Significant for the coronary artery disease, angioplasty, carotid disease and stent placement to the left carotid artery, diabetes, hypertension, hypothyroidism. He has had a hernia repair. He has had a cholecystectomy. MEDICATIONS: Prior to admission included; 1. Aspirin. 2. He had been on Plavix, was stopped a year ago. 3. He is on Synthroid. 4. Hydrochlorothiazide. 5. Imdur. 6. Tresiba. 7. Insulin on a sliding scale. 8. Lovastatin. 9. Ramipril. 10. Metformin. 11. Donepezil. ALLERGIES: NONE. SOCIAL HISTORY: He remains very active. He has no alcohol or tobacco abuse. He still goes to football games in [facility]. He lives with his , he resides with her in [place]. He has children, who are alive and well. REVIEW OF SYSTEMS: Unable to obtain. The family is at the bedside and no significant complaints on the review of systems except what is noted in the history of present illness. PHYSICAL EXAMINATION: GENERAL: Reveals an elderly gentleman, he is very lethargic at this time. He is arousable, but then goes back to sleep. He is afebrile. VITAL SIGNS: Blood pressure is 132/65, O2 saturation 94%, heart rate is 84, respiratory rate is 18. HEENT: Shows the head to be normocephalic and atraumatic. He does have bilateral carotid pulses, which are noted (his stenosis in the internal carotid artery). CHEST: Clear to auscultation. CARDIOVASCULAR: Reveals a regular rate and rhythm at this time. I do not hear any significant murmurs, heaves, thrills, bruits, or rubs. He has a very soft systolic murmur at the apex. ABDOMEN: Soft and nontender. Positive bowel sounds are present. EXTREMITIES: Show no clubbing or cyanosis. Pedal pulses are difficult to palpate, but popliteal pulses are present. NEUROLOGICAL: Neurologically, he seems to be somewhat flaccid on his left side. He is unable to move extremities at this time. The family did say he was able to move his leg a little bit earlier today, but he is not moving it now. He is not responding to my request to squeeze his hand or anything such as actively using his left side. SKIN: Warm and dry. LABORATORY DATA: As noted in his data, the MRI showed multiple right cerebral infarcts, which could be showering from the right occluded carotid artery with evidence of thrombus is unclear. He has been placed on some anticoagulation at this time. History of coronary artery disease, which appears to be stable. Some type of calcified, most likely a chordae tendineae in the left ventricle. This can be evaluated in the future, but do not think that this would be an ideal time to perform a transesophageal cardiogram on this patient. We will be more than happy to continue to follow the patient with you. Should he improve, then further evaluation could be undertaken. ASSESSMENT AND PLAN: This patient does have a left bundle branch block and I am uncertain whether this is new or not. He has also had some nonsustained ventricular tachycardia of 5 or 6 beats. I would continue to follow this also very carefully. He did have also some what appeared to be some SVT or atrial tachycardia about 13 beats. We will continue to monitor this patient for this but at this time, we will continue his medications. He may need to have a low dose of beta blockers. I noticed that he is not on beta blockers at this time. He is on ION inhibitor, as well as Plavix and also atorvastatin, but I do not see a beta ro and we will add a low dose beta ro to this gentleman. We will need to be very careful since his heart rate is sometimes a little bit slower and at this time is in the 70s and 80s. We will continue to monitor him while he is on telemetry. Job ID: [id number]
[2019-06-21] MEDS: D5 0.9% NS w/ 20 mEq KCl 1,000 ML IV SCH (03:40)
[2019-06-21] MEDS ORDERED: hydrALAZINE 20 MG/ML VIAL SLOW IVP SCH (04:00)
[2019-06-21 05:26] LABS: #Basophils 0.1 thou/uL (0.0-0.2); #Eosinphils 0.2 thou/uL (0.0-0.7); #Neutrophils 6.1 thou/uL (1.40-6.50); %Basophils 0.5 % (0.0-1.0); %Eosinophils 2.3 % (0.0-10.0); %Lymphocytes 21.6 % (21.0-51.0); %Monocytes 10.9 % (0.0-10.0); %Neutrophils 64.7 % (42.0-75.0); Hemoglobin 15.6 g/dL (14.0-18.0); Mean Corpuscular HGB CONC 32.5 g/dL (32.0-36.0); Mean Corpuscular Hemoglobin 31.1 pg (27.0-31.0); Mean Corpuscular Volume 95.6 fL (78.0-98.0); Mean Platelet Volume 7.7 fL (7.4-10.4); Platelet Count 271 thou/uL (130-400); RBC Distribution Width 12.7 % (11.5-14.5); Red Blood Cell (RBC) Count 5.03 mill/uL (4.70-6.10); White Blood Cell (WBC) Count 9.4 thou/uL (4.8-10.8)
[2019-06-21 05:40] LABS: ALT (SGPT) 16 U/L (8-55); AST (SGOT) 22 U/L (5-34); Albumin 3.9 g/dL (3.4-4.8); Alkaline Phosphatase 70 U/L (40-110); Anion Gap 13 mmol/L (10-20); BUN (Urea Nitrogen) 17 mg/dL (8.4-25.7); Bilirubin, Total 0.7 mg/dL (0.2-1.2); Calc. Creatinine Clearance 54 mL/min (70-130); Calcium 9.4 mg/dL (7.8-10.44); Carbon Dioxide 24 mmol/L (23-31); Chloride 106 mmol/L (98-107); Estimated GFR-MDRD 74; Globulin 3.1 g/dL (2.4-3.5); Glucose 60 mg/dL (83-110); Magnesium 1.8 mg/dL (1.6-2.6); Potassium 3.4 mmol/L (3.5-5.1); Sodium 140 mmol/L (136-145)
[2019-06-21] MEDS: Levothyroxine Sodium 112 MCG TAB PO SCH (06:10)
[2019-06-21] MEDS: Levothyroxine Sodium 25 MCG TAB PO SCH (06:10)
[2019-06-21] MEDS: Carvedilol 3.125 MG TAB PO SCH ×2 (07:57→17:08)
[2019-06-21] MEDS: Aspirin 81 mg Enteric Coated Tablet PO SCH (07:57)
[2019-06-21] MEDS: Insulin Glargine 10 UNITS in Pre-Filled Syringe 1 EACH SC SCH (07:58)
[2019-06-21] MEDS: Clopidogrel Bisulfate 75 MG TAB PO SCH (07:58)
[2019-06-21] MEDS: Famotidine 20 MG TAB PO SCH (07:58)
[2019-06-21] MEDS: Isosorbide Mononitrate (ER) 30 MG TAB PO SCH (07:59)
[2019-06-21] MEDS: Ramipril 5 MG CAP PO SCH (07:59)
--- NOTE | 2019-06-21 08:10 | CON ---
DATE OF CONSULTATION: PRIMARY CARDIOLOGISTS: 1. Dr. oJse Pike in [place]. 2. Stephanie Antunez MD at [facility]. REASON FOR CARDIOLOGY CONSULTATION: Acute CVA, evaluation for possible MINNA. HISTORY OF PRESENT ILLNESS: Mr. Allen is an 83-year-old male with a significant history of coronary artery disease with angioplasty without stent placement back in , hypertension, insulin-dependent diabetes, hypothyroidism. The patient was alleged to be doing well till June 17 when he was attending [employer]ancy ceremony here in [place]. He collapsed during the ceremony and he was brought to the rescue tent at the ceremony. After he received water and food, he was doing okay for 30 minutes. However, around 12:05, the family noticed the patient started having facial drooping with slurred speech and left-sided weakness. The patient was transferred to the hospital on Thursday, his NIH was . However, last Thursday, the patient's NIH was increased to 11 with worsening of left-sided weakness. At this moment, the patient is asleep and without any acute distress. So, the patient information was obtained from the patient's family member and from the medical record. Prior to this event, the patient's family has not noticed the patient's complaint of chest pain, discomfort in his chest, fluttering or palpitation in his chest, any other cardiac complaints. He walks more than 1 mile almost every day without any cardiac complaints. He has an intermitted dizziness, lightheadedness secondary to diabetes. He had a stress test done in January 2019 with EF of 53% with wall motion abnormality. However, according to the patient's family, the patient was not recommended to have any cardiac cath or any further cardiac workup. PAST MEDICAL HISTORY: Coronary artery disease with angioplasty without any stent placement in , hypertension, insulin-dependent diabetes, hypothyroidism, and memory loss. Actually, the patient is on Namenda, which the patient requests his primary care doctor to prescribe the medicine for further memory loss prevention and chronic left bundle-branch block. PAST SURGICAL HISTORY: Cholecystectomy, hernia repair. FAMILY HISTORY: The patient's mother at the age of 47 from lung cancer. The patient's grandmother on maternal side had a history of diabetes. The patient's son has medical history of hypertension. The patient's daughter has kidney problem with multiple surgeries when she was young. SOCIAL HISTORY: He is . He has 3 children, one daughter has congenital kidney problem when she was young. The patient confirmed that he is a nonsmoker, no ETOH, no illicit drug abuse. He exercises every day. He drinks 1 cup of coffee and 2 sodas every day. ALLERGIES: HE HAS NO KNOWN DRUG ALLERGIES. MEDICATIONS: 1. Namenda 5 mg once a day. 2. Aricept 10 mg once a day at night. 3. Lovastatin 20 mg every p.m. 4. Imdur 30 mg half a tablet once a day. 5. Hydrochlorothiazide 25 mg once a day. 6. Metformin 1000 mg twice a day. 7. Ramipril 10 mg once a day. 8. Multivitamin once a day. 9. Levothyroxine once a day. 10. Ferrous sulfate 325 mg 1 tablet once a day. 11. Vitamin D3 2000 units once a day. 12. Aspirin 81 mg once a day. REVIEW OF SYSTEMS: A 12-point review of systems is noncontributory from the patient, however, family member reports no complaints prior to this event. PHYSICAL EXAMINATION: VITAL SIGNS: Blood pressure 167/75, temperature 97.9, pulse is 77, sinus rhythm, O2 saturation 96% on room air, and respiratory rate 16. GENERAL: The patient is alert, the patient is sleeping at this moment, but not in acute distress. Seems like the patient has sleep apnea. He sometimes stopped breathing for 30 seconds today during the assessment. HEENT: Head, normocephalic, atraumatic. Eyes, extraocular muscle movement intact. ENT, mouth, facial drooping on the left side. At this moment, the patient is very drowsy. He does not follow any commands at this moment. RESPIRATORY: Clear to auscultation bilaterally. No wheezing, rales, or rhonchi noted. It seems like he has sleep apnea. CARDIOVASCULAR: Regular rate and rhythm. Normal S1, S2. There is no S3 or S4. No significant murmur, hives, or thrill noted. 2+ pulses in bilateral upper and lower extremities. No edema in the lower extremities. Carotid pulses are present, bruit bilaterally. ABDOMEN: Soft, nontender. No masses are palpated. Bowel sounds are present. MUSCULOSKELETAL: Unable to assess at this moment because the patient is very drowsy and the patient's family member refuses to wake him up at this moment. SKIN: Warm and dry. No significant rash, arrhythmia, or lesions noted. NEUROLOGIC: Again, unable to assess at this moment. LABORATORY DATA: Echocardiogram was done on June 18 with EF 60% to 65%, grade 1 diastolic dysfunction, mild left LVH, mildly dilated left atrium, mild tricuspid regurgitation, mild to moderate mitral valve regurgitation, and calcified mass in LV seems to be calcified chordae tendineae and recommended MINNA for further evaluation. CT scan showed severe right carotid stenosis and stent in the left carotid arteries. Vascular surgery consult was ordered. ASSESSMENT AND PLAN: 1. Possible acute cerebrovascular accident with left hemiparesis. Echocardiogram shows normal EF, but with calcified mass possible in LV. MINNA was recommended. 2. Hypertension. The patient's blood pressure is mildly elevated. We would like to adjust the patient's medication this moment. 3. Coronary artery disease with angioplasty without stent placement in . He has been started on aspirin and he is not on beta ro even in his home medication. I would like to discuss with the family member why the patient is not on a beta ro. If he is okay, we would like to start even the low dose of beta ro medication for this patient. The patient's pulse is stable at this moment. 4. Hyperlipidemia. He is on atorvastatin 40 mg at this moment. 5. Insulin-dependent diabetes which is managed by primary care doctor. He is on before meals and at bedtime blood glucose check with sliding scale insulin order. 6. Hypothyroidism. He is on levothyroxine. Thank you very much for allowing the cardiology service to participate in the care of this patient. We will follow along the patient's care team and make further recommendations as appropriate. Job ID: [id number]
[2019-06-21] MEDS ORDERED: Promethazine HCl 25 MG/ML VIAL SLOW IVP PRN (13:26)
[2019-06-21] MEDS ORDERED: Ondansetron HCl/PF 4 MG/2 ML Vial IVP PRN (13:26)
[2019-06-21] MEDS ORDERED: Promethazine HCl 25 MG/ML VIAL IM PRN (13:26)
[2019-06-21] MEDS ORDERED: PROPOFOL 200 MG/20 ML VIAL ONE (14:18)
[2019-06-21] MEDS ORDERED: Lidocaine 1% PF 5 ML VIAL ONE (14:18)
--- NOTE | 2019-06-21 15:08 | PDOC.CPN ---
- Subjective Date: 06/21/19 Time: 15:13 Interval history: The pt seen and examined. No overnight events. No cardiac complaints. S/p PEG tube placement. O2 sat while he stops breathing has been > 90s. - Objective Allergies/Adverse Reactions: Allergies Allergy/AdvReac Type Severity Reaction Status Date / Time No Known Allergies Allergy Unverified 06/17/19 16:54 Visit Medications: Current Medications Acetaminophen (Tylenol) 650 mg PO Q4H PRN PRN Reason: Headache/Fever/Mild Pain (1-3) Aspirin (Ecotrin) 81 mg PO DAILY [facility] Last Admin: 06/21/19 07:57 Dose: Not Given Atorvastatin Calcium (Lipitor) 40 mg PO HS [facility] Last Admin: 06/20/19 21:24 Dose: Not Given Bisacodyl (Dulcolax) 10 mg [place] DAILYPRN PRN PRN Reason: Constipation Carvedilol (Coreg) 1.5625 mg PO BID-[facility] Last Admin: 06/21/19 07:57 Dose: Not Given Clopidogrel Bisulfate (Plavix) 75 mg PO DAILY [facility] Last Admin: 06/21/19 07:58 Dose: Not Given Dextrose/Water (Dextrose 50%) 25 gm SLOW IVP PRN PRN PRN Reason: Hypoglycemia Donepezil HCl (Aricept) 10 mg PO HS [facility] Last Admin: 06/20/19 21:24 Dose: Not Given Enoxaparin Sodium (Lovenox) 40 mg SC 0900 [facility] Last Admin: 06/20/19 08:42 Dose: 40 mg Famotidine (Pepcid) 20 mg PO DAILY [facility] Last Admin: 06/21/19 07:58 Dose: Not Given Glucagon (Glucagon) 1 mg IM PRN PRN PRN Reason: Hypoglycemia Guaifenesin/Dextromethorphan (Robitussin Dm) 15 ml PO Q4H PRN PRN Reason: Cough Dextrose/Water (D5w) 1,000 mls @ 0 mls/hr IV .Q0M PRN PRN Reason: Hypoglycemia Potassium Chloride/Dextrose/Sod Cl (D5 0.9% Ns W/ 20 Meq Kcl) 1,000 mls @ 75 mls/hr IV .[id number] [facility] Last Admin: 06/21/19 03:40 Dose: 1,000 mls Insulin Human Lispro (Humalog) 0 units SC .MODERATE SLIDING SC PRN PRN Reason: Moderate Correctional Scale Last Admin: 06/18/19 12:44 Dose: 8 units Insulin Human Lispro (Humalog) 0 units SC .BEDTIME SLIDING SC PRN PRN Reason: Bedtime Correctional Scale Isosorbide Mononitrate (Imdur Er) 15 mg PO DAILY [facility] Last Admin: 06/21/19 07:59 Dose: Not Given Levothyroxine Sodium (Synthroid) 112 mcg PO 0600 [facility] Last Admin: 06/21/19 06:10 Dose: Not Given Levothyroxine Sodium (Synthroid) 25 mcg PO 0600 [facility] Last Admin: 06/21/19 06:10 Dose: Not Given Ondansetron HCl (Pacu-Zofran) 4 mg IVP ONE PRN PRN Reason: Nausea/Vomiting Stop: 06/21/19 16:26 Prochlorperazine Maleate (Compazine) 5 mg PO 12 PRN PRN Reason: Hiccups Last Admin: 06/19/19 21:07 Dose: 5 mg Promethazine HCl (Pacu-Phenergan) 6.25 mg SLOW IVP ONE PRN PRN Reason: Nausea/Vomiting Stop: 06/21/19 16:26 Promethazine HCl (Pacu-Phenergan) 6.25 mg IM ONE PRN PRN Reason: Nausea/Vomiting Stop: 06/21/19 16:26 Ramipril (Altace) 10 mg PO DAILY [facility] Last Admin: 06/21/19 07:59 Dose: Not Given Senna/Docusate Sodium (Senokot S) 2 tab PO BIDPRN PRN PRN Reason: Constipation Sodium Chloride (Flush - Normal Saline) 10 ml IVF PRN PRN PRN Reason: Saline Flush Last Admin: 06/17/19 21:02 Dose: 10 ml Vital Signs & Weight: Vital Signs Temp Pulse Resp BP BP Pulse Ox 06/21/19 11:28 98.4 F 76 18 161/79 H 98 06/21/19 08:00 97 06/21/19 07:59 142/71 H 06/21/19 07:48 98.4 F 79 18 135/66 97 06/21/19 04:33 139/67 06/21/19 04:16 80 20 155/77 H 96 06/21/19 04:00 65 06/21/19 03:43 217/93 H Admit Weight 147 lb 13.44 oz Weight 147 lb 13.44 oz - Physical Exam General: other (sleeping) Neck: supple neck Cardiac: regular rate and rhythm, S1/S2 Lungs: clear to auscultation, decreased breath sounds Skin: clear - Labs Result Diagrams: 06/21/19 04:46 06/21/19 04:46 Troponin/CKMB Troponin I 0.025 ng/mL (< 0.028) 06/17/19 12:36 - Telemetry Sinus rhythms and dysrhythmias: sinus rhythm - Assessment/Plan Assessment/Plan: 1. LBBB and s/p NSVTs/Atrial tachycardia - stable with Coreg 3.125mg 1/2 tab BID ; cont. to monitor on tele 2. 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 Rt ICA stenosis and hx of Lt CEA - 4. CAD with AIR BRAKE ADJUSTER without stent in 1980s - 5. HTN - stable with current meds 6. HLD - pn Statin 7. 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 8. Hypothyroidim - 9. Mass in Left Ventricle - possible MINNA when the pt is more stable 10. JL - per the family, he was diagnosed JL; however, refused to wear cpcp at home MAR reviewed Pt. seen and eval. by me. Still very lethargic. I reviewed the echo and this appears to be a calcified papillary muscle. Very unusual finding. This could be the result of the SD that he had many years ago. I spoke to his and she states that he has had frequent echoes in the past and this was not mentioned. She will ask her plans examiner in [place] to review the old echoe from the last 1-2 years and see if this calcified mass was present. It would appear that the CVA was caused by the occlusion of the right ICA. From a cardiac standpoint he is not a good candidate at this time for a MINNA or any cardiac intervention. Otherwise the cardiac status is stable. abel
[2019-06-21] MEDS ORDERED: D5 0.9% NS w/ 20 mEq KCl 1,000 ML IV SCH ×2 (15:14→18:46)
--- NOTE | 2019-06-21 18:38 | OP ---
DATE OF PROCEDURE: 06/21/2019 PREOPERATIVE DIAGNOSIS: CVA. POSTOPERATIVE DIAGNOSIS: Normal EGD with PEG tube placed. ANESTHESIA: TIVA, Ancef 2 g IV given. DESCRIPTION OF PROCEDURE: The patient was informed of the risks, benefits, and possible complications of endoscopy including perforation, reaction to medication, and aspiration, informed consent was obtained. The patient was brought to the endoscopy suite, where he was sedated in gradual fashion. Once he was comfortable, a bite block was placed inside his orifice. The endoscope was advanced to the esophagus, stomach, and second and third portion of the duodenum and slowly removed. There was good visualization of the mucosa. There were no mass lesions or AV malformations identified. There was good site for PEG tube placement by transillumination and finger indentation and identified on the anterior abdominal wall. After this, the abdomen was prepped and draped in sterile fashion and PEG tube was placed by Ponsky pull technique. Second-look confirmed good position. Retroflexed views were normal. The scope was removed. The patient tolerated the procedure well. There were no complications. RECOMMENDATIONS: Tube feeds can begin as per hospitalist in 1 hour. Can use the PEG now for medications. Job ID: [id number]
[2019-06-21] MEDS: Donepezil HCl 10 MG TAB PO SCH (20:13)
[2019-06-21] MEDS: Ramipril 5 MG CAP PER TUBE SCH (20:13)
[2019-06-21] MEDS: Isosorbide Mononitrate 20 MG TAB PER TUBE SCH (20:13)
[2019-06-21] MEDS: Atorvastatin Calcium 40 MG TAB PO SCH (20:13)
--- NOTE | 2019-06-21 22:26 | PDOC.HOSPP ---
- Subjective Encounter Date: 06/21/19 Encounter Time: 19:00 Subjective: Patient seen and examined for Acute CVA. Mentation improving. No new complaints. No overnight events - Objective Vital Signs & Weight: Vital Signs (12 hours) Temp Pulse Resp BP BP Pulse Ox 06/21/19 20:13 142/71 H 06/21/19 20:08 99.2 F 77 20 175/88 H 97 06/21/19 16:00 98.4 F 63 16 163/76 H 93 L 06/21/19 11:28 98.4 F 76 18 161/79 H 98 Weight Admit Weight 147 lb 13.44 oz Weight 147 lb 13.44 oz I&O: 06/20/19 06/21/19 06/22/19 06:59 06:59 06:59 Intake Total 307 Balance 307 Result Diagrams: 06/21/19 04:46 06/21/19 04:46 Additional Labs: Accuchecks 06/21/19 06/21/19 06/21/19 20:14 16:31 10:42 POC Glucose 142 H 115 H 116 H 06/21/19 06/21/19 06/21/19 08:17 05:58 03:30 POC Glucose 86 71 82 EKG Reviewed by me: Yes (Tele SR) Hospitalist ROS - Review of Systems ROS unobtainable: due to mental status - Medication Medications: Active Medications Generic Name Dose Route Start Last Admin Trade Name Freq PRN Reason Stop Dose Admin Aspirin 81 mg 06/18/19 09:00 06/21/19 07:57 Ecotrin PO Not Given DAILY BREA Atorvastatin Calcium 40 mg 06/17/19 21:00 06/21/19 20:13 Lipitor PO 40 mg HS BREA Administration Carvedilol 1.5625 mg 06/21/19 08:00 06/21/19 17:08 Coreg PO 1.5625 mg BID-WM BREA Administration Clopidogrel Bisulfate 75 mg 06/18/19 09:00 06/21/19 07:58 Plavix PO Not Given DAILY [facility] Donepezil HCl 10 mg 06/17/19 21:00 06/21/19 20:13 Aricept PO 10 mg HS BREA Administration Enoxaparin Sodium 40 mg 06/18/19 09:00 06/20/19 08:42 Lovenox SC 40 mg 0900 BREA Administration Famotidine 20 mg 06/18/19 09:00 06/21/19 07:58 Pepcid PO Not Given DAILY [facility] Insulin Human Lispro 0 units 06/17/19 15:24 06/18/19 12:44 Humalog SC 8 units .MODERATE SLIDING SC PRN Administration Moderate Correctional Scale Isosorbide Mononitrate 15 mg 06/21/19 21:00 06/21/19 20:13 Ismo PER TUBE 15 mg BID BREA Administration Levothyroxine Sodium 112 mcg 06/18/19 06:00 06/21/19 06:10 Synthroid PO Not Given 0600 BREA Levothyroxine Sodium 25 mcg 06/18/19 06:00 06/21/19 06:10 Synthroid PO Not Given 0600 BREA Prochlorperazine Maleate 5 mg 06/19/19 16:14 06/19/19 21:07 Compazine PO 5 mg 12 PRN Administration Hiccups Ramipril 5 mg 06/21/19 21:00 06/21/19 20:13 Altace PER TUBE 5 mg BID BREA Administration Sodium Chloride 10 ml 06/17/19 15:24 06/17/19 21:02 Flush - Normal Saline IVF 10 ml PRN PRN Administration Saline Flush - Exam General Appearance: NAD Neck: supple, no JVD Heart: RRR, no rubs Respiratory: CTAB, no rales Gastrointestinal: soft, non-tender, non-distended, normal bowel sounds Extremities: no edema Hosp A/P - Plan Acute CVA Swallow dysfunction s/p PEG Rt ICA stenosis NSVT CAD HTN HLD DM2 Hypothyrodism Hypokalemia PLAN: Cont ASA/Plavix Restart Nitrates and ACEI Tolerating low dose BB Tube feed AM labs MINNA when more stable
[2019-06-22] MEDS: HumaLOG 300 UNITS/3 ML VIAL SC PRN ×4 (01:05→17:37)
[2019-06-22] MEDS: Levothyroxine Sodium 112 MCG TAB PO SCH (06:20)
[2019-06-22] MEDS: Levothyroxine Sodium 25 MCG TAB PO SCH (06:20)
[2019-06-22] MEDS: Enoxaparin Sodium 40 MG/0.4 ML SYRINGE SC SCH (08:38)
[2019-06-22] MEDS: Isosorbide Mononitrate 20 MG TAB PER TUBE SCH ×2 (08:39→21:30)
[2019-06-22] MEDS: Ramipril 5 MG CAP PER TUBE SCH ×2 (08:39→21:30)
[2019-06-22] MEDS: Famotidine 20 MG TAB PO SCH (08:39)
[2019-06-22] MEDS: Aspirin 81 mg Enteric Coated Tablet PO SCH (08:40)
[2019-06-22] MEDS: Clopidogrel Bisulfate 75 MG TAB PO SCH (08:40)
[2019-06-22] MEDS: Carvedilol 3.125 MG TAB PO SCH ×2 (08:40→17:32)
[2019-06-22] MEDS: Insulin Glargine 10 UNITS in Pre-Filled Syringe 1 EACH SC SCH (09:20)
--- NOTE | 2019-06-22 12:00 | PDOC.CPN ---
- Subjective Date: 06/22/19 Time: 12:00 Interval history: The pt seen and examined. He opens his eyes and answers questions well - Objective Allergies/Adverse Reactions: Allergies Allergy/AdvReac Type Severity Reaction Status Date / Time No Known Allergies Allergy Unverified 06/17/19 16:54 Visit Medications: Current Medications Acetaminophen (Tylenol) 650 mg PO Q4H PRN PRN Reason: Headache/Fever/Mild Pain (1-3) Aspirin (Ecotrin) 81 mg PO DAILY [facility] Last Admin: 06/22/19 08:40 Dose: 81 mg Atorvastatin Calcium (Lipitor) 40 mg PO HS [facility] Last Admin: 06/21/19 20:13 Dose: 40 mg Bisacodyl (Dulcolax) 10 mg [place] DAILYPRN PRN PRN Reason: Constipation Carvedilol (Coreg) 1.5625 mg PO BID-[facility] Last Admin: 06/22/19 08:40 Dose: 1.5625 mg Clopidogrel Bisulfate (Plavix) 75 mg PO DAILY [facility] Last Admin: 06/22/19 08:40 Dose: 75 mg Dextrose/Water (Dextrose 50%) 25 gm SLOW IVP PRN PRN PRN Reason: Hypoglycemia Donepezil HCl (Aricept) 10 mg PO HS [facility] Last Admin: 06/21/19 20:13 Dose: 10 mg Enoxaparin Sodium (Lovenox) 40 mg SC 0900 [facility] Last Admin: 06/22/19 08:38 Dose: 40 mg Famotidine (Pepcid) 20 mg PO DAILY [facility] Last Admin: 06/22/19 08:39 Dose: 20 mg Glucagon (Glucagon) 1 mg IM PRN PRN PRN Reason: Hypoglycemia Guaifenesin/Dextromethorphan (Robitussin Dm) 15 ml PO Q4H PRN PRN Reason: Cough Dextrose/Water (D5w) 1,000 mls @ 0 mls/hr IV .Q0M PRN PRN Reason: Hypoglycemia Insulin Glargine 10 units/ (Miscellaneous Medication) 0.1 mls @ 0 mls/hr SC QAM [facility] Last Admin: 06/22/19 09:20 Dose: 0.1 mls Insulin Glargine 10 units/ (Miscellaneous Medication) 0.1 mls @ 0 mls/hr SC [facility] Insulin Human Lispro (Humalog) 0 units SC .MODERATE SLIDING SC PRN PRN Reason: Moderate Correctional Scale Last Admin: 06/22/19 11:40 Dose: 8 units Insulin Human Lispro (Humalog) 0 units SC .BEDTIME SLIDING SC PRN PRN Reason: Bedtime Correctional Scale Last Admin: 06/22/19 04:32 Dose: 3 unit Isosorbide Mononitrate (Ismo) 15 mg PER TUBE BID [facility] Last Admin: 06/22/19 08:39 Dose: 15 mg Levothyroxine Sodium (Synthroid) 112 mcg PO 0600 [facility] Last Admin: 06/22/19 06:20 Dose: 112 mcg Levothyroxine Sodium (Synthroid) 25 mcg PO 0600 [facility] Last Admin: 06/22/19 06:20 Dose: 25 mcg Prochlorperazine Maleate (Compazine) 5 mg PO 12 PRN PRN Reason: Hiccups Last Admin: 06/19/19 21:07 Dose: 5 mg Ramipril (Altace) 5 mg PER TUBE BID [facility] Last Admin: 06/22/19 08:39 Dose: 5 mg Senna/Docusate Sodium (Senokot S) 2 tab PO BIDPRN PRN PRN Reason: Constipation Sodium Chloride (Flush - Normal Saline) 10 ml IVF PRN PRN PRN Reason: Saline Flush Last Admin: 06/17/19 21:02 Dose: 10 ml Vital Signs & Weight: Vital Signs Temp Pulse Resp BP BP Pulse Ox 06/22/19 08:39 176/84 H 06/22/19 08:00 96 06/22/19 07:54 98.2 F 71 18 176/84 H 96 06/22/19 03:41 99.1 F 70 20 129/75 93 L 06/22/19 01:53 94 L Admit Weight 147 lb 13.44 oz Weight 147 lb 13.44 oz - Physical Exam General: alert & oriented x3 Cardiac: regular rate and rhythm, S1/S2 Lungs: clear to auscultation, decreased breath sounds Skin: clear Musculoskeletal: decreased range of motion - Labs Result Diagrams: 06/21/19 04:46 06/21/19 04:46 Troponin/CKMB Troponin I 0.025 ng/mL (< 0.028) 06/17/19 12:36 - Telemetry Sinus rhythms and dysrhythmias: sinus rhythm - Assessment/Plan Assessment/Plan: 1. LBBB and s/p NSVTs/Atrial tachycardia - stable with Coreg 3.125mg 1/2 tab BID ; cont. to monitor on tele 2. 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 Rt ICA stenosis and hx of Lt CEA - 4. CAD with BEVELER without stent in 1980s - 5. HTN - stable with current meds 6. HLD - pn Statin 7. 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 8. Hypothyroidim - 9. Mass in Left Ventricle -possible calcified papillary muscle; will get last Echo result from his [employer] office in [place]; possible MINNA when the pt is more stable; From a cardiac standpoint he is not a good candidate at this time for a MINNA or any cardiac intervention. 10. JL - per the family, he was diagnosed JL; however, refused to wear cpcp at home MAR reviewed Pt. seen and eval. I agree with the A/P by the PHOTOVOLTAIC TECHNICIAN. He is stable from a cardiac standpoint. Chest clear. RRR. The cardiac calcification is probably old and is likely stable. In the future he could have a MINNA or a CT scan to define the anatomy.
--- NOTE | 2019-06-22 13:32 | PRG ---
DATE OF SERVICE: 06/22/2019 SUBJECTIVE: Mr. Allen's PEG tube placement went well yesterday with no complications. He has done well overnight. He is not complaining of any abdominal pain. He is tolerating tube feeds at a rate of 65 mL/h currently. I checked the PEG tube site. It looks good. There is some minimal oozing around the PEG tube, which is slowed down. I loosened the external bumper slightly to a distance of 3.5 cm, which should be a good distance for him. Note, hemoglobin is stable, normal at 15.6. GI will sign off. Please call back anytime with questions or concerns. Job ID: [id number]
[2019-06-22] MEDS ORDERED: hydrALAZINE 25 MG TAB PO SCH (15:00)
--- NOTE | 2019-06-22 19:45 | PDOC.HOSPP ---
- Subjective Encounter Date: 06/22/19 Encounter Time: 11:30 Subjective: Patient seen and examined for Acute CVA. No new focal deficits. No new complaints. No overnight events - Objective Vital Signs & Weight: Vital Signs (12 hours) Temp Pulse Pulse Pulse Resp BP BP 06/22/19 15:52 98.3 F 76 15 06/22/19 12:00 97.3 F L 74 17 06/22/19 09:40 83 87 120/72 06/22/19 08:39 176/84 H 06/22/19 08:00 06/22/19 07:54 98.2 F 71 18 BP BP Pulse Ox 06/22/19 15:52 177/81 H 95 06/22/19 12:00 191/86 H 96 06/22/19 09:40 131/81 06/22/19 08:39 06/22/19 08:00 96 06/22/19 07:54 176/84 H 96 Weight Admit Weight 147 lb 13.44 oz Weight 147 lb 13.44 oz I&O: 06/21/19 06/22/19 06/23/19 06:59 06:59 06:59 Intake Total 307 200 Balance 307 200 Result Diagrams: 06/21/19 04:46 06/21/19 04:46 Additional Labs: Accuchecks 06/22/19 06/22/19 06/22/19 17:37 10:45 03:49 POC Glucose 247 H 324 H 268 H 06/22/19 06/21/19 00:02 20:14 POC Glucose 218 H 142 H EKG Reviewed by me: Yes (Tele SR) Hospitalist ROS - Review of Systems Respiratory: denies: cough, dry, shortness of breath, hemoptysis, SOB with excertion, pleuritic pain, sputum, wheezing, other Cardiovascular: denies: chest pain, palpitations, orthopnea, paroxysmal noc. dyspnea, edema, light headedness, other - Medication Medications: Active Medications Generic Name Dose Route Start Last Admin Trade Name Freq PRN Reason Stop Dose Admin Aspirin 81 mg 06/18/19 09:00 06/22/19 08:40 Ecotrin PO 81 mg DAILY BREA Administration Atorvastatin Calcium 40 mg 06/17/19 21:00 06/21/19 20:13 Lipitor PO 40 mg HS BREA Administration Carvedilol 3.125 mg 06/22/19 17:00 06/22/19 17:32 Coreg PO 3.125 mg BID-WM BREA Administration Clopidogrel Bisulfate 75 mg 06/18/19 09:00 06/22/19 08:40 Plavix PO 75 mg DAILY BREA Administration Donepezil HCl 10 mg 06/17/19 21:00 06/21/19 20:13 Aricept PO 10 mg HS BREA Administration Famotidine 20 mg 06/18/19 09:00 06/22/19 08:39 Pepcid PO 20 mg DAILY BREA Administration Insulin Glargine 10 units/ 0.1 mls @ 0 mls/hr 06/22/19 09:00 06/22/19 09:20 Miscellaneous Medication SC 0.1 mls QAM BREA Administration Insulin Human Lispro 0 units 06/17/19 15:24 06/22/19 17:37 Humalog SC 4 units .MODERATE SLIDING SC PRN Administration Moderate Correctional Scale Insulin Human Lispro 0 units 06/17/19 15:24 06/22/19 04:32 Humalog SC 3 unit .BEDTIME SLIDING SC PRN Administration Bedtime Correctional Scale Isosorbide Mononitrate 15 mg 06/21/19 21:00 06/22/19 08:39 Ismo PER TUBE 15 mg BID BREA Administration Levothyroxine Sodium 112 mcg 06/18/19 06:00 06/22/19 06:20 Synthroid PO 112 mcg 0600 BREA Administration Levothyroxine Sodium 25 mcg 06/18/19 06:00 06/22/19 06:20 Synthroid PO 25 mcg 0600 BREA Administration Prochlorperazine Maleate 5 mg 06/19/19 16:14 06/19/19 21:07 Compazine PO 5 mg 12 PRN Administration Hiccups Sodium Chloride 10 ml 06/17/19 15:24 06/17/19 21:02 Flush - Normal Saline IVF 10 ml PRN PRN Administration Saline Flush - Exam General Appearance: NAD Neck: supple, no JVD Heart: RRR, no gallops Respiratory: CTAB, no rales, no ronchi Gastrointestinal: soft, non-tender, non-distended Neurological: no new deficit Hosp A/P - Plan Acute CVA Swallow dysfunction s/p PEG Rt ICA stenosis NSVT CAD HTN - uncontrolled HLD DM2 Hypothyrodism Hypokalemia PLAN: Cont ASA/Plavix Increase Ramipril and Coreg Cont Imdur Cont Tube feed Increase Lantus to 10 units BID AM labs
[2019-06-22] MEDS ORDERED: Ramipril 5 MG CAP PER TUBE SCH (21:00)
[2019-06-22] MEDS ORDERED: Insulin Glargine 10 UNITS in Pre-Filled Syringe 1 EACH SC SCH (21:00)
[2019-06-22] MEDS: Donepezil HCl 10 MG TAB PO SCH ×2 (21:30→21:31)
[2019-06-22] MEDS: Atorvastatin Calcium 40 MG TAB PO SCH (21:31)
[2019-06-23] MEDS: HumaLOG 300 UNITS/3 ML VIAL SC PRN ×3 (00:28→14:18)
[2019-06-23 05:43] LABS: #Eosinphils 0.3 thou/uL (0.0-0.7); #Lymphocytes 1.2 thou/uL (1.20-3.40); #Monocytes 0.9 thou/uL (0.11-0.59); #Neutrophils 6.4 thou/uL (1.40-6.50); %Basophils 0.4 % (0.0-1.0); %Eosinophils 3.8 % (0.0-10.0); %Lymphocytes 13.5 % (21.0-51.0); %Monocytes 10.6 % (0.0-10.0); %Neutrophils 71.8 % (42.0-75.0); Hemoglobin 13.5 g/dL (14.0-18.0); Mean Corpuscular HGB CONC 33.7 g/dL (32.0-36.0); Mean Corpuscular Volume 95.1 fL (78.0-98.0); Mean Platelet Volume 8.1 fL (7.4-10.4); Platelet Count 233 thou/uL (130-400); RBC Distribution Width 12.7 % (11.5-14.5); Red Blood Cell (RBC) Count 4.21 mill/uL (4.70-6.10); White Blood Cell (WBC) Count 8.9 thou/uL (4.8-10.8)
[2019-06-23 06:04] LABS: Phosphorus 3.4 mg/dL (2.3-4.7)
[2019-06-23 06:06] LABS: ALT (SGPT) 15 U/L (8-55); AST (SGOT) 21 U/L (5-34); Albumin 3.2 g/dL (3.4-4.8); Alkaline Phosphatase 66 U/L (40-110); Anion Gap 10 mmol/L (10-20); BUN (Urea Nitrogen) 25 mg/dL (8.4-25.7); Bilirubin, Total 0.4 mg/dL (0.2-1.2); Calc. Creatinine Clearance 54 mL/min (70-130); Calcium 8.8 mg/dL (7.8-10.44); Carbon Dioxide 24 mmol/L (23-31); Chloride 105 mmol/L (98-107); Estimated GFR-MDRD 74; Globulin 2.7 g/dL (2.4-3.5); Glucose 335 mg/dL (83-110); Potassium 4.2 mmol/L (3.5-5.1); Protein, Total 5.9 g/dL (5.8-8.1); Sodium 135 mmol/L (136-145)
[2019-06-23] MEDS ORDERED: hydrALAZINE 20 MG/ML VIAL SLOW IVP PRN (06:07)
[2019-06-23] MEDS: Levothyroxine Sodium 112 MCG TAB PO SCH (06:17)
[2019-06-23] MEDS: Levothyroxine Sodium 25 MCG TAB PO SCH (06:17)
--- NOTE | 2019-06-23 10:06 | PDOC.CPN ---
- Subjective Date: 06/23/19 Time: 10:06 Interval history: The pt seen and examined. No overnight events. No cardiac complaints. He opens his eyes well this AM than yesterday. - Objective Allergies/Adverse Reactions: Allergies Allergy/AdvReac Type Severity Reaction Status Date / Time No Known Allergies Allergy Unverified 06/17/19 16:54 Visit Medications: Current Medications Acetaminophen (Tylenol) 650 mg PO Q4H PRN PRN Reason: Headache/Fever/Mild Pain (1-3) Aspirin (Ecotrin) 81 mg PO DAILY [facility] Last Admin: 06/22/19 08:40 Dose: 81 mg Atorvastatin Calcium (Lipitor) 40 mg PO HS [facility] Last Admin: 06/22/19 21:31 Dose: 40 mg Bisacodyl (Dulcolax) 10 mg [place] DAILYPRN PRN PRN Reason: Constipation Carvedilol (Coreg) 3.125 mg PO BID-[facility] Last Admin: 06/22/19 17:32 Dose: 3.125 mg Clopidogrel Bisulfate (Plavix) 75 mg PO DAILY [facility] Last Admin: 06/22/19 08:40 Dose: 75 mg Dextrose/Water (Dextrose 50%) 25 gm SLOW IVP PRN PRN PRN Reason: Hypoglycemia Donepezil HCl (Aricept) 10 mg PO HS [facility] Last Admin: 06/22/19 21:31 Dose: 10 mg Enoxaparin Sodium (Lovenox) 30 mg SC 0900 [facility] Famotidine (Pepcid) 20 mg PO DAILY [facility] Last Admin: 06/22/19 08:39 Dose: 20 mg Glucagon (Glucagon) 1 mg IM PRN PRN PRN Reason: Hypoglycemia Guaifenesin/Dextromethorphan (Robitussin Dm) 15 ml PO Q4H PRN PRN Reason: Cough Hydralazine HCl (Apresoline) 10 mg SLOW IVP Q4H PRN PRN Reason: SBP > 180 Last Admin: 06/23/19 06:16 Dose: 10 mg Dextrose/Water (D5w) 1,000 mls @ 0 mls/hr IV .Q0M PRN PRN Reason: Hypoglycemia Insulin Glargine 10 units/ (Miscellaneous Medication) 0.1 mls @ 0 mls/hr SC QAM [facility] Last Admin: 06/22/19 09:20 Dose: 0.1 mls Insulin Glargine 10 units/ (Miscellaneous Medication) 0.1 mls @ 0 mls/hr SC HS [facility] Last Admin: 06/22/19 21:31 Dose: 0.1 mls Insulin Human Lispro (Humalog) 0 units SC .MODERATE SLIDING SC PRN PRN Reason: Moderate Correctional Scale Last Admin: 06/23/19 06:16 Dose: 6 units Insulin Human Lispro (Humalog) 0 units SC .BEDTIME SLIDING SC PRN PRN Reason: Bedtime Correctional Scale Last Admin: 06/23/19 00:28 Dose: 2 unit Isosorbide Mononitrate (Ismo) 15 mg PER TUBE BID [facility] Last Admin: 06/22/19 21:30 Dose: 15 mg Levothyroxine Sodium (Synthroid) 112 mcg PO 0600 [facility] Last Admin: 06/23/19 06:17 Dose: 112 mcg Levothyroxine Sodium (Synthroid) 25 mcg PO 0600 [facility] Last Admin: 06/23/19 06:17 Dose: 25 mcg Prochlorperazine Maleate (Compazine) 5 mg PO 12 PRN PRN Reason: Hiccups Last Admin: 06/19/19 21:07 Dose: 5 mg Ramipril (Altace) 10 mg PER TUBE BID [facility] Last Admin: 06/22/19 21:30 Dose: 10 mg Senna/Docusate Sodium (Senokot S) 2 tab PO BIDPRN PRN PRN Reason: Constipation Sodium Chloride (Flush - Normal Saline) 10 ml IVF PRN PRN PRN Reason: Saline Flush Last Admin: 06/17/19 21:02 Dose: 10 ml Vital Signs & Weight: Vital Signs Temp Pulse Resp BP BP Pulse Ox 06/23/19 08:52 97.5 F L 88 14 144/74 H 97 06/23/19 06:16 73 185/95 H 06/23/19 05:26 185/95 H 06/23/19 04:00 97.5 F L 66 18 195/86 H 96 06/23/19 00:00 98.7 F 77 20 168/89 H 94 L Admit Weight 147 lb 13.44 oz Weight 147 lb 13.44 oz - Physical Exam General: alert & oriented x3 HEENT: mucus membranes moist Neck: supple neck Cardiac: regular rate and rhythm, S1/S2 Lungs: decreased breath sounds Musculoskeletal: decreased range of motion - Labs Result Diagrams: 06/23/19 05:08 06/23/19 05:08 Troponin/CKMB Troponin I 0.025 ng/mL (< 0.028) 06/17/19 12:36 - Telemetry Sinus rhythms and dysrhythmias: sinus rhythm - Assessment/Plan Assessment/Plan: 1. LBBB and s/p NSVTs/Atrial tachycardia - stable with Coreg 3.125mg 1/2 tab BID ; cont. to monitor on tele 2. 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 Rt ICA stenosis and hx of Lt CEA - 4. CAD with CISO without stent in - 5. HTN - stable with current meds 6. HLD - pn Statin 7. 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 8. Hypothyroidim - 9. Mass in Left Ventricle -possible calcified papillary muscle; will get last Echo result from his [employer] office in [place]; possible MINNA or [place] when the pt is more stable; From a cardiac standpoint he is not a good candidate at this time for a MINNA or any cardiac intervention. 10. JL - per the family, he was diagnosed JL; however, refused to wear cpcp at home MAR reviewed
[2019-06-23] MEDS ORDERED: Polyethylene Glycol 3350 17 GM Packet PO PRN (11:00)
[2019-06-23] MEDS: Enoxaparin Sodium 30 MG/0.3 ML SYRINGE SC SCH (11:11)
[2019-06-23] MEDS: Aspirin 81 mg Enteric Coated Tablet PO SCH (11:12)
[2019-06-23] MEDS: Clopidogrel Bisulfate 75 MG TAB PO SCH (11:12)
[2019-06-23] MEDS: Isosorbide Mononitrate 20 MG TAB PER TUBE SCH ×2 (11:12→20:30)
[2019-06-23] MEDS: Famotidine 20 MG TAB PO SCH (11:12)
[2019-06-23] MEDS: Carvedilol 3.125 MG TAB PO SCH ×2 (11:12→18:31)
[2019-06-23] MEDS: Ramipril 5 MG CAP PER TUBE SCH ×2 (11:13→20:29)
[2019-06-23] MEDS: Insulin Glargine 10 UNITS in Pre-Filled Syringe 1 EACH SC SCH (11:40)
[2019-06-23] MEDS ORDERED: HumaLOG 300 UNITS/3 ML VIAL SC PRN (15:51)
[2019-06-23] MEDS: Atorvastatin Calcium 40 MG TAB PO SCH (20:29)
[2019-06-23] MEDS: Donepezil HCl 10 MG TAB PO SCH (20:29)
[2019-06-23] MEDS: Insulin Glargine 20 UNITS in Pre-Filled Syringe 1 EACH SC SCH (20:30)
[2019-06-23] MEDS ORDERED: Insulin Glargine 20 UNITS in Pre-Filled Syringe 1 EACH SC SCH (21:00)
[2019-06-23] MEDS ORDERED: Insulin Glargine 15 UNITS in Pre-Filled Syringe 1 EACH SC SCH (21:00)
--- NOTE | 2019-06-23 21:38 | PDOC.HOSPP ---
- Subjective Encounter Date: 06/23/19 Encounter Time: 10:30 Subjective: Patient seen and examined for Acute CVA. Tolerating PEG feeds. Intermittent confusion/somnolence. No new complaints. No overnight events - Objective Vital Signs & Weight: Vital Signs (12 hours) Temp Pulse Resp BP BP BP BP 06/23/19 20:29 162/77 H 06/23/19 20:00 98 F 70 16 162/77 H 06/23/19 16:44 97.9 F 68 14 150/75 H 06/23/19 15:01 144/76 H 161/77 H 06/23/19 12:00 98.5 F 72 16 125/68 06/23/19 11:13 165/79 H Pulse Ox 06/23/19 20:29 06/23/19 20:00 96 06/23/19 16:44 94 L 06/23/19 15:01 06/23/19 12:00 96 06/23/19 11:13 Weight Admit Weight 147 lb 13.44 oz Weight 147 lb 13.44 oz I&O: 06/22/19 06/23/19 06/24/19 06:59 06:59 06:59 Intake Total 400 100 Balance 400 100 Result Diagrams: 06/23/19 05:08 06/23/19 05:08 Additional Labs: Accuchecks 06/23/19 06/23/19 06/23/19 20:28 18:29 14:57 POC Glucose 299 H 338 H 325 H 06/23/19 06/23/19 06/23/19 12:12 06:09 00:11 POC Glucose 292 H 276 H 244 H EKG Reviewed by me: Yes (Tele SR) Hospitalist ROS - Review of Systems Cardiovascular: denies: chest pain, palpitations, orthopnea, paroxysmal noc. dyspnea, edema, light headedness, other Gastrointestinal: denies: nausea, vomiting, abdominal pain, diarrhea, constipation, melena, hematochezia, other - Medication Medications: Active Medications Generic Name Dose Route Start Last Admin Trade Name Freq PRN Reason Stop Dose Admin Aspirin 81 mg 06/18/19 09:00 06/23/19 11:12 Ecotrin PO 81 mg DAILY BREA Administration Atorvastatin Calcium 40 mg 06/17/19 21:00 06/23/19 20:29 Lipitor PO 40 mg HS BREA Administration Carvedilol 3.125 mg 06/22/19 17:00 06/23/19 18:31 Coreg PO 3.125 mg BID-WM BREA Administration Clopidogrel Bisulfate 75 mg 06/18/19 09:00 06/23/19 11:12 Plavix PO 75 mg DAILY BREA Administration Donepezil HCl 10 mg 06/17/19 21:00 06/23/19 20:29 Aricept PO 10 mg HS BREA Administration Enoxaparin Sodium 30 mg 06/23/19 09:00 06/23/19 11:11 Lovenox SC 30 mg 0900 BREA Administration Famotidine 20 mg 06/18/19 09:00 06/23/19 11:12 Pepcid PO 20 mg DAILY BREA Administration Hydralazine HCl 10 mg 06/23/19 06:07 06/23/19 06:16 Apresoline SLOW IVP 10 mg Q4H PRN Administration SBP > 180 Insulin Glargine 20 units/ 0.2 mls @ 0 mls/hr 06/23/19 21:00 06/23/19 20:30 Miscellaneous Medication SC 0.2 mls BID BREA Administration As Directed Insulin Human Lispro 0 units 06/17/19 15:24 06/23/19 00:28 Humalog SC 2 unit .BEDTIME SLIDING SC PRN Administration Bedtime Correctional Scale Isosorbide Mononitrate 15 mg 06/21/19 21:00 06/23/19 20:30 Ismo PER TUBE 15 mg BID BREA Administration Levothyroxine Sodium 112 mcg 06/18/19 06:00 06/23/19 06:17 Synthroid PO 112 mcg 0600 BREA Administration Levothyroxine Sodium 25 mcg 06/18/19 06:00 06/23/19 06:17 Synthroid PO 25 mcg 0600 BREA Administration Prochlorperazine Maleate 5 mg 06/19/19 16:14 06/19/19 21:07 Compazine PO 5 mg 12 PRN Administration Hiccups Ramipril 10 mg 06/22/19 21:00 06/23/19 20:29 Altace PER TUBE 10 mg BID BREA Administration Sodium Chloride 10 ml 06/17/19 15:24 06/17/19 21:02 Flush - Normal Saline IVF 10 ml PRN PRN Administration Saline Flush - Exam General Appearance: NAD Neck: supple, no JVD Heart: RRR, no gallops Respiratory: CTAB, no rales Gastrointestinal: soft, non-distended, normal bowel sounds Extremities: no edema Hosp A/P - Plan DVT proph w/lovenox, DVT proph w/SCDs Acute CVA Swallow dysfunction s/p PEG Rt ICA stenosis NSVT CAD HTN -uncontrolled HLD DM2 - uncontrolled Hypothyrodism Hypokalemia PLAN: Cont ASA/Plavix Cont Imdur,Ramipril and Coreg Change sliding scale to aggressive Cont tube feed - reduce water flushes Increase Lantus to 20 units BID DC to SNF in AM if stable
[2019-06-24] MEDS: HumaLOG 300 UNITS/3 ML VIAL SC PRN ×2 (00:03→04:16)
[2019-06-24] MEDS: Levothyroxine Sodium 112 MCG TAB PO SCH (05:30)
[2019-06-24] MEDS: Levothyroxine Sodium 25 MCG TAB PO SCH (05:30)
[2019-06-24] MEDS ORDERED: Insulin Glargine 15 UNITS in Pre-Filled Syringe 1 EACH SC SCH (09:00)
[2019-06-24] MEDS: Ramipril 5 MG CAP PER TUBE SCH (09:48)
[2019-06-24] MEDS: Famotidine 20 MG TAB PO SCH (09:50)
[2019-06-24] MEDS: Isosorbide Mononitrate 20 MG TAB PER TUBE SCH (09:50)
[2019-06-24] MEDS: Carvedilol 3.125 MG TAB PO SCH (09:50)
[2019-06-24] MEDS: Enoxaparin Sodium 30 MG/0.3 ML SYRINGE SC SCH (09:50)
[2019-06-24] MEDS: Clopidogrel Bisulfate 75 MG TAB PO SCH (09:50)
[2019-06-24] MEDS: Aspirin 81 mg Enteric Coated Tablet PO SCH (09:50)
[2019-06-24] MEDS: Insulin Glargine 20 UNITS in Pre-Filled Syringe 1 EACH SC SCH (09:51)
--- NOTE | 2019-06-24 10:40 | PDOC.CPN ---
- Subjective Date: 06/24/19 Time: 10:46 Interval history: The pt seen and examined. No cardiac complaints. 1 episode of 5 beats of NSVTs early this AM. The pt was asymptomatic and VS was stable. - Objective Allergies/Adverse Reactions: Allergies Allergy/AdvReac Type Severity Reaction Status Date / Time No Known Allergies Allergy Unverified 06/17/19 16:54 Visit Medications: Current Medications Acetaminophen (Tylenol) 650 mg PO Q4H PRN PRN Reason: Headache/Fever/Mild Pain (1-3) Amlodipine Besylate (Norvasc) 5 mg PO DAILY [facility] Aspirin (Ecotrin) 81 mg PO DAILY [facility] Last Admin: 06/24/19 09:50 Dose: 81 mg Atorvastatin Calcium (Lipitor) 40 mg PO HS [facility] Last Admin: 06/23/19 20:29 Dose: 40 mg Bisacodyl (Dulcolax) 10 mg [place] DAILYPRN PRN PRN Reason: Constipation Carvedilol (Coreg) 3.125 mg PO BID-[facility] Last Admin: 06/24/19 09:50 Dose: 3.125 mg Clopidogrel Bisulfate (Plavix) 75 mg PO DAILY [facility] Last Admin: 06/24/19 09:50 Dose: 75 mg Dextrose/Water (Dextrose 50%) 25 gm SLOW IVP PRN PRN PRN Reason: Hypoglycemia Donepezil HCl (Aricept) 10 mg PO HS [facility] Last Admin: 06/23/19 20:29 Dose: 10 mg Enoxaparin Sodium (Lovenox) 30 mg SC 0900 [facility] Last Admin: 06/24/19 09:50 Dose: 30 mg Famotidine (Pepcid) 20 mg PO DAILY [facility] Last Admin: 06/24/19 09:50 Dose: 20 mg Glucagon (Glucagon) 1 mg IM PRN PRN PRN Reason: Hypoglycemia Guaifenesin/Dextromethorphan (Robitussin Dm) 15 ml PO Q4H PRN PRN Reason: Cough Hydralazine HCl (Apresoline) 10 mg SLOW IVP Q4H PRN PRN Reason: SBP > 180 Last Admin: 06/23/19 06:16 Dose: 10 mg Dextrose/Water (D5w) 1,000 mls @ 0 mls/hr IV .Q0M PRN PRN Reason: Hypoglycemia Insulin Glargine 20 units/ (Miscellaneous Medication) 0.2 mls @ 0 mls/hr SC BID [facility] Last Admin: 06/24/19 09:51 Dose: 0.2 mls Insulin Human Lispro (Humalog) 0 units SC .BEDTIME SLIDING SC PRN PRN Reason: Bedtime Correctional Scale Last Admin: 06/24/19 04:16 Dose: 3 unit Insulin Human Lispro (Humalog) 0 units SC .AGGRESSIVE SLIDING PRN PRN Reason: Aggressive Correctional Scale Isosorbide Mononitrate (Ismo) 15 mg PER TUBE BID [facility] Last Admin: 06/24/19 09:50 Dose: 15 mg Levothyroxine Sodium (Synthroid) 112 mcg PO 0600 [facility] Last Admin: 06/24/19 05:30 Dose: 112 mcg Levothyroxine Sodium (Synthroid) 25 mcg PO 0600 [facility] Last Admin: 06/24/19 05:30 Dose: 25 mcg Polyethylene Glycol (Miralax) 17 gm PO DAILY PRN PRN Reason: Constipation Prochlorperazine Maleate (Compazine) 5 mg PO 12 PRN PRN Reason: Hiccups Last Admin: 06/19/19 21:07 Dose: 5 mg Ramipril (Altace) 10 mg PER TUBE BID [facility] Last Admin: 06/24/19 09:48 Dose: 10 mg Sodium Chloride (Flush - Normal Saline) 10 ml IVF PRN PRN PRN Reason: Saline Flush Last Admin: 06/17/19 21:02 Dose: 10 ml Vital Signs & Weight: Vital Signs Temp Pulse Resp BP BP Pulse Ox 06/24/19 09:48 187/88 H 06/24/19 07:53 98.8 F 77 16 185/89 H 96 06/24/19 04:00 97.8 F 79 18 162/94 H 95 06/23/19 23:56 99 F 75 16 162/95 H 94 L Admit Weight 147 lb 13.44 oz Weight 147 lb 13.44 oz - Physical Exam General: alert & oriented x3 Neck: supple neck Cardiac: regular rate and rhythm, S1/S2 Lungs: decreased breath sounds Abdomen: unremarkable Skin: clear Musculoskeletal: decreased range of motion - Labs Result Diagrams: 06/23/19 05:08 06/23/19 05:08 Troponin/CKMB Troponin I 0.025 ng/mL (< 0.028) 06/17/19 12:36 - Telemetry Sinus rhythms and dysrhythmias: sinus rhythm - Assessment/Plan Assessment/Plan: 1. LBBB and s/p NSVTs/Atrial tachycardia - stable with Coreg 3.125mg BID; cont. to monitor on tele 2. 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 Rt ICA stenosis and hx of Lt CEA - 4. CAD with [employer]IVIL [employer] DES[employer]ER without stent in - s/p 5 beats of NSVTs on 06/23/2019; He needs further cardiac workup when his condition is more stable 5. HTN - will start Norvasc 5mg qd from today 6. HLD - on Statin 7. 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 8. Hypothyroidim - 9. Mass in Left Ventricle -possible calcified papillary muscle; will get last Echo result from his [employer] office in [place]; possible MINNA or CT when the pt is more stable; From a cardiac standpoint he is not a good candidate at this time for a MINNA or any cardiac intervention. 10. JL - per the family, he was diagnosed JL; however, refused to wear cpcp at home MAR reviewed * the pt is stable to tx to rehab. Pt. seen and eval. by me. I agree with the A/P by the CHEMICAL DETECTION EXPERT. I spoke with his respiratory care program director in [place], [place] and he will see him after he is released from rehab. The calcified papillary muscle is not a new finding and not likely the source of the CVA.
[2019-06-24] MEDS ORDERED: Amlodipine 5 MG TAB PO SCH ×2 (10:45→11:00)
[2019-06-24 11:45] VITALS: BP 127/80
[2019-06-24 11:49] VITALS: TEMP 98.1
[2019-06-25] MEDS ORDERED: Amlodipine 5 MG TAB PO SCH (09:00)
--- NOTE | 2019-06-25 13:57 | EKG ---
Test Reason : Blood Pressure : / mmHG Vent. Rate : 063 BPM Atrial Rate : 063 BPM P-R Int : 174 ms QRS Dur : 152 ms QT Int : 478 ms P-R-T Axes : 032 -04 136 degrees QTc Int : 489 ms Normal sinus rhythm Left bundle branch block Abnormal ECG Confirmed by KHARI GARCIA DO ([id number]), book editor ASHLEY BANEGAS ([id number]) on 06/25/2019 1:55:47 PM Also confirmed by KHARI GARCIA DO ([id number]), book editor ASHLEY BANEGAS ([id number]) on 06/25/2019 1:56:40 PM Referred By: Confirmed By:KHARI GARCIA DO
--- NOTE | 2019-06-26 11:37 | DIS ---
DATE OF ADMISSION: 06/17/2019 DATE OF DISCHARGE: 06/24/2019 DISCHARGE DISPOSITION: To [facility] facility in [place]. The patient was seen and examined on the day of discharge. Denies any new complaints. DISCHARGE MEDICATIONS: 1. Ramipril 10 mg b.i.d. 2. MiraLAX 17 g as needed. 3. Metformin 500 mg b.i.d. 4. Isosorbide mononitrate 20 mg b.i.d. 5. Lantus 25 units b.i.d. 6. Lovenox for DVT prophylaxis. 7. Plavix 75 mg daily. 8. Carvedilol 3.125 mg b.i.d. 9. Lipitor 40 mg at bedtime. 10. Amlodipine 5 mg daily. 11. Tylenol as needed. 12. Lovastatin 20 mg q.p.m. 13. Levothyroxine 137 mcg daily. 14. Aspirin 81 mg daily. 15. Vitamin D3 2000 units daily. INPATIENT REPAIRER SASH AND DOOR: 1. Neurology, Dr. Vu. 2. Cardiology, Dr. Antunez. 3. GI, Dr. Stern. INPATIENT PROCEDURES: On June,, the patient underwent PEG tube placement by Dr. Stern. DIAGNOSTIC TESTS: 1. CT scan of the brain on admission was negative for acute findings. CT angiogram of the neck showed high-grade stenosis with string sign and occlusion of the right internal carotid artery. The intracranial right internal carotid artery does have enhancement due to collateral floor. It also showed a stent in the left carotid bifurcation and the proximal left internal carotid artery with atherosclerotic disease. There was short segment moderate narrowing of the right M1 segment. 2. MRI of the brain on May,, showed acute likely embolic lacunar infarct involving the right subinsular cortex as well as cortex and subcortical white matter of the anterolateral right frontal lobe. It also showed mild chronic small-vessel white matter ischemic changes with mild generalized cerebral and cerebellar atrophy next repeat CT scan of the brain next day due to altered mentation showed evolutionary changes of the known anterolateral right frontal lobe cortical infarct and lacunar infarct in the right subinsular region. 3. Echocardiogram showed left ventricular ejection fraction of 60% to 65% with diastolic dysfunction, mild concentric left ventricular hypertrophy along with possible calcified mass in the left ventricle, seemed to be calcified chordae tendineae. It also showed mild to moderate mitral regurgitation. BRIEF HOSPITAL COURSE: The patient is an 83-year-old male with hypertension, diabetes mellitus type 2, hyperlipidemia, and left carotid stenosis, status post stent in [place], presented to the hospital with stroke-like symptoms. His workup was consistent with anterolateral right frontal lobe cortical infarct. He was seen by Neurology and Cardiology. Neurology recommended adding Plavix to aspirin. Due to carotid stenosis, he was also evaluated by Cardiovascular, Dr. Junior, who recommended to continue aspirin and Plavix. He underwent PEG tube placement due to failed swallow eval. He is tolerating PEG tube feeds. He was discharged to [facility] facility in [place] for further rehabilitation. Plan of care was discussed with the patient and the family in detail, they stated understanding. FINAL DIAGNOSES: 1. Acute anterolateral right frontal lobe cortical infarct and lacunar infarct in the right subinsular region. 2. Right internal carotid stenosis. 3. History of left carotid stenosis, status post stent placement. 4. Nonsustained ventricular tachycardia, started on beta blockers. 5. Coronary artery disease. 6. Hypertension. 7. Hyperlipidemia. 8. Diabetes mellitus, type 2. 9. Hypothyroidism. 10. Hypokalemia. 11. Questionable mass in the left ventricle. Cardiology recommended a MINNA when the patient is more stable. 12. History of obstructive sleep apnea, not on CPAP. 13. History of coronary artery disease, status post angioplasty in . 14. Left bundle-branch block. 15. Atrial tachycardia. Job ID: [id number]
== END 2019-06-24 14:15 | DRG 62 ==
LOC: ERS 12:26 → 2SE 17:15
PROVIDERS: ADMIT Internal Medicine; ATTEND Internal Medicine
PROC: 3E03317 Introduction of Other Thrombolytic into Peripheral Vein, Percutaneous Approach (ICD-10-PCS; principal; 2019-06-17)
PROC: B3251ZZ Computerized Tomography (CT Scan) of Bilateral Common Carotid Arteries using Low Osmolar Contrast (ICD-10-PCS; 2019-06-17)
PROC: B32R1ZZ Computerized Tomography (CT Scan) of Intracranial Arteries using Low Osmolar Contrast (ICD-10-PCS; 2019-06-17)
PROC: B3281ZZ Computerized Tomography (CT Scan) of Bilateral Internal Carotid Arteries using Low Osmolar Contrast (ICD-10-PCS; 2019-06-17)
PROC: 0DH63UZ Insertion of Feeding Device into Stomach, Percutaneous Approach (ICD-10-PCS; 2019-06-21)
DX: I63.231 Cerebral infarction due to unspecified occlusion or stenosis of right carotid arteries (principal); I47.2 Ventricular tachycardia; I47.1 Supraventricular tachycardia; G81.94 Hemiplegia, unspecified affecting left nondominant side; I25.10 Atherosclerotic heart disease of native coronary artery without angina pectoris; E78.5 Hyperlipidemia, unspecified; E11.9 Type 2 diabetes mellitus without complications; E87.6 Hypokalemia; I11.9 Hypertensive heart disease without heart failure; I44.7 Left bundle-branch block, unspecified; G47.33 Obstructive sleep apnea (adult) (pediatric); F03.90 Unspecified dementia, unspecified severity, without behavioral disturbance, psychotic disturbance, mood disturbance, and anxiety; R29.709 NIHSS score 9; R13.12 Dysphagia, oropharyngeal phase; Z79.82 Long term (current) use of aspirin; Z79.899 Other long term (current) drug therapy; Z79.4 Long term (current) use of insulin; I25.2 Old myocardial infarction
CPT/HCPCS: 36415; 36416; 70450; 70496; 70498; 70551; 74230; 80048; 80053; 80061; 83735; 84100; 84484; 85025; 85610; 85730; 93005; 93306; J0360; J0690; J1650; J1815; J2001; J2704; J2997; Q0164; Q9966